=== PATIENT | male | born 1945 | race Caucasian/White ===

== ENCOUNTER → 2017-02-24 | Outpatient (CLI) | payer MEDICARE, OTHER ==
[~2017-02-24] MED LIST: ABAC300; ACETAMINOPHEN500 MG PO; ALBU2.5V5 NEB; ALBU90OI6 INH; ALBU90OI61 INH; ALLO100 PO; ALUM-MAG HYDRO360 ML PO; AMLO10 PO; AMLO5 PO; AMOCLA500 PO; ASPI81CH PO; ASPI81EC PO; ATEN50; ATOR80 PO; AURYXIA PO; Allergy Relief10 M1 PO; Aranesp60 MCG/11 INJ; Aspir-Low81 MG PO; BIOTIN1000 MCG PO; BIOTIN10000 MC1 PO; BISA10S PR; BISA5EC PO; BUME2 PO; CALCA500CH PO; CEPH500 PO; CHOL10002; CHOL10002 PO; CINA30; CINA30 PO; CITA20 PO; CLARITIN10 MG PO; CLEM1.34; CLON.1 PO; CLON.2 PO; CLON.3 PO; CLON.3TP TOP; CLON.5 PO; CLOP75 PO; COMBIVENT RESPIM4 GM IH; COMBIVENT RESPIM4 GM INH; Calcium Carbon500 M1 PO; Cilostazol50 MG PO; Clotrimazole AF30 GM TOP; Colace100 MG PO; Cyclobenzaprine5 MG PO; DARB200I SC; DOCU100 PO; DOXERCALCIFEROL SC; ERGO400 PO; FERRIC CITRATE210 MG PO; FEXO180 PO; FISH OIL 500 M1 EAC1 PO; FISH1000 PO; FURO20 PO; FURO80 PO; Flomax0.4 MG PO; GABA300 PO; GABA400 PO; GABA600 PO; GEMF600 PO; GLIP5 PO; HYDACE10B PO; HYDACE5 PO; HYDCHL25 PO; HYDRA25 PO; INSR10I SC; INSUASPI; INSUASPI PO; INSUASPI SC; INSULANI SC; INSULANPEN; INSULANPEN SC; ISOMON20 PO; LAVAP17G PO; LEVFLO250 PO; LEVFLO500 PO; LEVO750 PO; LINZESS145 MCG PO; LOSA25 PO; LOSA50 PO; MERIBIN5 MG PO; METO100ER PO; METO25ER PO; METO5 PO; METO50ER PO; METOLAZONE; MULVITMIND PO; NEBI10 PO; NEPHROCAP PO; NYST100000 PO; Nephro-Vite RX1 EA PO; Norco 10-325 T1 EACH PO; Novolog Fl100 UNIT/1; Novolog Fl100 UNIT/1 SC; Novolog100 UNIT/2 SC; OMEP20ER PO; Omeprazole20 M1; Omeprazole20 M1 PO; POLY17UD PO; POTCHL10ER PO; POTCHL20ER PO; PRED1 PO; PRED10 PO; PRED20 PO; PRED5 PO; PREG75 PO; PSYL5.85P PO; Percocet 10-321 EACH PO; Percocet 5-3251 EACH PO; Prednisone50 MG PO; RENAL VITAMIN0.8 MG PO; ROPI1 PO; Rena-Vite Tabl0.8 MG PO; Renvela800 MG PO; SIMV10 PO; SIMV40 PO; SIMV80 PO; SULTRIDS PO; TAMS.4ER PO; TRAM50 PO; TRIPHROCAPS SOFT1 MG PO; Tamiflu30 MG PO; VANC125 IV; VITAMIN D32000 UNIT PO; Vancomycin1 GM/2501; [UNRECOGNIZED DRUG - OTHER] PO; [UNRECOGNIZED DRUG - OTHER] PO
[2017-02-24 13:34] LABS: BASOPHILS ABSOLUTE AUTO 0.01 K/mm3 (0.00-0.23); BASOPHILS PERCENT AUTO 0 % (0-2); EOSINOPHILS ABSOLUTE AUTO 0.06 K/mm3 (0.00-0.68); EOSINOPHILS PERCENT AUTO 1 % (0-6); Hemoglobin 10.9 g/dL (13.5-17.5); IMMATURE GRAN ABSOLUTE AUTO 0.02 K/mm3 (0.00-0.10); IMMATURE GRAN PERCENT AUTO 0 % (0-1); LYMPHOCYTES ABSOLUTE AUTO 0.92 K/mm3 (0.84-5.20); LYMPHOCYTES PERCENT AUTO 15 % (21-46); MONOCYTES ABSOLUTE AUTO 0.39 K/mm3 (0.16-1.47); MONOCYTES PERCENT AUTO 6 % (4-13); Mean Corpuscular HGB 29.5 pg (26.0-34.0); Mean Corpuscular HGB Conc 31.1 g/dL (31.5-36.5); Mean Corpuscular Volume 95 fL (80-100); Mean Platelet Volume 10.6 fL (9.1-12.4); NEUTROPHILS ABSOLUTE AUTO 4.68 K/mm3 (1.96-9.15); NEUTROPHILS PERCENT AUTO 77 % (41-73); Platelet Count 199 K/mm3 (150-400); RDW Coefficient Variation 15.4 % (11.7-14.2); RDW Standard Deviation 53.5 fL (35.1-46.3); White Blood Cell Count 6.08 K/mm3 (4.00-11.30)
== END | disposition home or self-care (01) ==
LOC: LAB DAV 12:45
PROVIDERS: Internal Medicine Nephrology
DX: N18.6 End stage renal disease (principal); D63.1 Anemia in chronic kidney disease
CPT/HCPCS: 84550; 85025

== ENCOUNTER → 2017-03-10 | Outpatient (CLI) | payer MEDICARE, OTHER | END | disposition home or self-care (01) | LOC: LAB DAV 12:29 | DX: L95.9 Vasculitis limited to the skin, unspecified (principal) | CPT/HCPCS: 85651; 86140 ==

== ENCOUNTER → 2017-06-26 | Outpatient (CLI) | payer MEDICARE, OTHER ==
[~2017-06-26] MED LIST changes: -ACETAMINOPHEN500 MG PO; -ALBU2.5V5 NEB; -ATEN50; -AURYXIA PO; -Aranesp60 MCG/11 INJ; -BIOTIN1000 MCG PO; -Calcium Carbon500 M1 PO; -FERRIC CITRATE210 MG PO; -GABA400 PO; -HYDRA25 PO; -ISOMON20 PO; -LEVO750 PO; -Novolog100 UNIT/2 SC; -PREG75 PO; -RENAL VITAMIN0.8 MG PO
[2017-06-26 13:59] LABS: Hematocrit 27.1 % (37.0-53.0); Hemoglobin 8.7 g/dL (13.5-17.5); Mean Corpuscular HGB Conc 32.1 g/dL (31.5-36.5); Mean Corpuscular Volume 96 fL (80-100); Mean Platelet Volume 10.8 fL (9.1-12.4); Platelet Count 185 K/mm3 (150-400); RDW Coefficient Variation 13.7 % (11.7-14.2); RDW Standard Deviation 48.9 fL (35.1-46.3); Red Blood Cell Count 2.81 M/mm3 (4.30-5.90); White Blood Cell Count 10.98 K/mm3 (4.00-11.30)
[2017-06-26 14:25] LABS: C-REACTIVE PROTEIN, EXT RANGE 0.684 mg/dL (0.000-0.300); Uric Acid, Blood 5.9 mg/dL (3.5-7.2); Very Low Density Lipoprot Chol 52 mg/dL (6-32)
[2017-06-26 14:51] LABS: Alanine Aminotransfer (ALT/SGP 22 U/L (12-78); Albumin, Blood 3.1 g/dL (3.4-5.0); Albumin/Globulin Ratio 0.8 (0.8-1.8); Alk Phos 84 U/L (50-136); Anion Gap 11 mmol/L (6-16); Aspartate Aminotrans (AST/SGOT 12 U/L (12-37); Bilirubin, Total 0.4 mg/dL (0.1-1.0); Blood Urea Nitrogen 58 mg/dL (8-24); CHOL/HDL RATIO 3.1; CO2, Blood 27 mmol/L (21-32); Calcium, Blood 8.9 mg/dL (8.5-10.1); Chloride, Blood 96 mmol/L (98-108); Cholesterol 144 mg/dL (50-200); Globulin, Blood 3.7 g/dL (2.2-4.0); Glucose, Blood 274 mg/dL (70-99); HDL Cholesterol 46 mg/dL (>39); Low Density Lipoprotein Chol 46 mg/dL (0-110); Potassium, Blood 5.1 mmol/L (3.5-5.5); Sodium, Blood 134 mmol/L (136-145); Thyroid Stimulating Hormone 0.781 uIU/mL (0.360-4.800); Total Protein, Blood 6.8 g/dL (6.4-8.2); Triglycerides 261 mg/dL (30-160)
[2017-06-26 15:10] LABS: Creatinine, Blood 8.27 mg/dL (0.60-1.20); Glomerular Filtration Rate 7 (60-)
== END | disposition home or self-care (01) ==
LOC: OLS 12:04 → LAB SHORT 12:04
PROVIDERS: Hospitalist
DX: E11.40 Type 2 diabetes mellitus with diabetic neuropathy, unspecified (principal); M31.5 Giant cell arteritis with polymyalgia rheumatica; I10 Essential (primary) hypertension
CPT/HCPCS: 36415; 80053; 80061; 83036; 84443; 84550; 85027; 85651; 86140

== ENCOUNTER 2017-07-11 17:09 | Inpatient (IN) | payer MEDICARE, OTHER ==
[~2017-07-11] VITALS: Ht 172.7 cm; Wt 117.9 kg
[2017-07-11 18:04] LABS: BASOPHILS ABSOLUTE AUTO 0.01 K/mm3 (0.00-0.23); BASOPHILS PERCENT AUTO 0 % (0-2); EOSINOPHILS ABSOLUTE AUTO 0.02 K/mm3 (0.00-0.68); EOSINOPHILS PERCENT AUTO 0 % (0-6); IMMATURE GRAN ABSOLUTE AUTO 0.09 K/mm3 (0.00-0.10); IMMATURE GRAN PERCENT AUTO 1 % (0-1); LYMPHOCYTES ABSOLUTE AUTO 1.15 K/mm3 (0.84-5.20); LYMPHOCYTES PERCENT AUTO 15 % (21-46); MONOCYTES ABSOLUTE AUTO 0.48 K/mm3 (0.16-1.47); MONOCYTES PERCENT AUTO 6 % (4-13); Mean Corpuscular HGB 32.4 pg (26.0-34.0); Mean Corpuscular HGB Conc 33.3 g/dL (31.5-36.5); Mean Corpuscular Volume 97 fL (80-100); Mean Platelet Volume 10.6 fL (9.1-12.4); NEUTROPHILS ABSOLUTE AUTO 6.07 K/mm3 (1.96-9.15); NEUTROPHILS PERCENT AUTO 78 % (41-73); Platelet Count 153 K/mm3 (150-400); RDW Coefficient Variation 13.4 % (11.7-14.2); RDW Standard Deviation 48.1 fL (35.1-46.3); Red Blood Cell Count 2.78 M/mm3 (4.30-5.90); White Blood Cell Count 7.82 K/mm3 (4.00-11.30)
[2017-07-11 18:18] LABS: Albumin, Blood 3.4 g/dL (3.4-5.0); Albumin/Globulin Ratio 0.9 (0.8-1.8); Bilirubin, Total 0.3 mg/dL (0.1-1.0); Bun/Creatinine Ratio 6.5 (12.0-20.0); Calcium, Blood 9.5 mg/dL (8.5-10.1); Creatinine, Blood 5.37 mg/dL (0.60-1.20); Globulin, Blood 3.7 g/dL (2.2-4.0); Potassium, Blood 4.2 mmol/L (3.5-5.5); Total Protein, Blood 7.1 g/dL (6.4-8.2)
[2017-07-11 18:32] LABS: Troponin I 0.019 ng/mL (0.000-0.040)
[2017-07-11] MEDS ORDERED: AURYXIA PO (21:26)
[2017-07-11] MEDS ORDERED: ATEN50 (21:26)
[2017-07-11] MEDS ORDERED: HYDRA25 PO (22:11)
[2017-07-12 04:39] LABS: BASOPHILS ABSOLUTE AUTO 0.01 K/mm3 (0.00-0.23); BASOPHILS PERCENT AUTO 0 % (0-2); EOSINOPHILS ABSOLUTE AUTO 0.03 K/mm3 (0.00-0.68); EOSINOPHILS PERCENT AUTO 1 % (0-6); Hematocrit 25.8 % (37.0-53.0); Hemoglobin 8.3 g/dL (13.5-17.5); IMMATURE GRAN PERCENT AUTO 2 % (0-1); LYMPHOCYTES ABSOLUTE AUTO 0.83 K/mm3 (0.84-5.20); LYMPHOCYTES PERCENT AUTO 13 % (21-46); MONOCYTES ABSOLUTE AUTO 0.32 K/mm3 (0.16-1.47); MONOCYTES PERCENT AUTO 5 % (4-13); Mean Corpuscular HGB 31.4 pg (26.0-34.0); Mean Corpuscular HGB Conc 32.2 g/dL (31.5-36.5); Mean Corpuscular Volume 98 fL (80-100); Mean Platelet Volume 10.7 fL (9.1-12.4); NEUTROPHILS ABSOLUTE AUTO 4.94 K/mm3 (1.96-9.15); NEUTROPHILS PERCENT AUTO 79 % (41-73); Platelet Count 141 K/mm3 (150-400); RDW Coefficient Variation 13.5 % (11.7-14.2); RDW Standard Deviation 48.6 fL (35.1-46.3); Red Blood Cell Count 2.64 M/mm3 (4.30-5.90); White Blood Cell Count 6.23 K/mm3 (4.00-11.30)
[2017-07-12 05:05] LABS: Magnesium, Blood 2.3 mg/dL (1.6-2.4)
[2017-07-12 05:10] LABS: Alanine Aminotransfer (ALT/SGP 25 U/L (12-78); Albumin, Blood 2.9 g/dL (3.4-5.0); Albumin/Globulin Ratio 0.8 (0.8-1.8); Alk Phos 89 U/L (50-136); Anion Gap 9 mmol/L (6-16); Aspartate Aminotrans (AST/SGOT 17 U/L (12-37); Bilirubin, Total 0.3 mg/dL (0.1-1.0); Blood Urea Nitrogen 43 mg/dL (8-24); Bun/Creatinine Ratio 7.1 (12.0-20.0); CO2, Blood 31 mmol/L (21-32); Calcium, Blood 9.2 mg/dL (8.5-10.1); Chloride, Blood 98 mmol/L (98-108); Creatinine, Blood 6.06 mg/dL (0.60-1.20); Globulin, Blood 3.6 g/dL (2.2-4.0); Glomerular Filtration Rate 10 (60-); Glucose, Blood 168 mg/dL (70-99); Phosphorus, Blood 5.9 mg/dL (2.5-4.9); Potassium, Blood 4.6 mmol/L (3.5-5.5); Sodium, Blood 138 mmol/L (136-145); Total Protein, Blood 6.5 g/dL (6.4-8.2)
[2017-07-12 06:45] LABS: Influenza A Negative (NEGATIVE); Influenza B Negative (NEGATIVE)
[2017-07-13 05:25] LABS: Hematocrit 29.2 % (37.0-53.0); Hemoglobin 9.5 g/dL (13.5-17.5)
[2017-07-13 05:47] LABS: Anion Gap 9 mmol/L (6-16); Blood Urea Nitrogen 45 mg/dL (8-24); Bun/Creatinine Ratio 7.6 (12.0-20.0); CO2, Blood 30 mmol/L (21-32); Calcium, Blood 8.8 mg/dL (8.5-10.1); Chloride, Blood 96 mmol/L (98-108); Creatinine, Blood 5.94 mg/dL (0.60-1.20); Glomerular Filtration Rate 10 (60-); Glucose, Blood 276 mg/dL (70-99); Magnesium, Blood 2.3 mg/dL (1.6-2.4); Phosphorus, Blood 5.2 mg/dL (2.5-4.9); Potassium, Blood 4.6 mmol/L (3.5-5.5); Sodium, Blood 135 mmol/L (136-145)
[2017-07-13 06:22] LABS: Percent Saturation 35.2 % (20.0-50.0)
[2017-07-13 08:17] LABS: Source, Urine Clean Catch
[2017-07-13 08:41] LABS: Bilirubin, Urine Neg (Neg); Blood, Urine 1+ (Neg); Glucose Qualitative, Urine 4+ (Neg); Ketones, Urine Neg (Neg); Leukocyte Esterase, Urine Neg (Neg); Nitrite, Urine Neg (Neg); Protein, Urine 3+ (Neg); Urobilinogen, Urine NORM (Normal)
[2017-07-13 09:05] LABS: Appearance, Urine Clear (Clear); Color, Urine Yellow (P-Yellow)
[2017-07-13 09:08] LABS: Bacteria Few /hpf; Red Blood Cells, Urine 0-2 /hpf (0-2); Squamous Epithelial Cells Few /hpf (Few); White Blood Cells, Urine 0-2 /hpf (0-5)
[2017-07-14 04:17] LABS: BASOPHILS ABSOLUTE AUTO 0.02 K/mm3 (0.00-0.23); BASOPHILS PERCENT AUTO 0 % (0-2); EOSINOPHILS ABSOLUTE AUTO 0.07 K/mm3 (0.00-0.68); EOSINOPHILS PERCENT AUTO 1 % (0-6); Hematocrit 28.5 % (37.0-53.0); Hemoglobin 9.4 g/dL (13.5-17.5); IMMATURE GRAN ABSOLUTE AUTO 0.15 K/mm3 (0.00-0.10); IMMATURE GRAN PERCENT AUTO 2 % (0-1); LYMPHOCYTES ABSOLUTE AUTO 1.43 K/mm3 (0.84-5.20); LYMPHOCYTES PERCENT AUTO 18 % (21-46); MONOCYTES ABSOLUTE AUTO 0.66 K/mm3 (0.16-1.47); MONOCYTES PERCENT AUTO 8 % (4-13); Mean Corpuscular HGB 31.3 pg (26.0-34.0); Mean Platelet Volume 10.6 fL (9.1-12.4); NEUTROPHILS ABSOLUTE AUTO 5.59 K/mm3 (1.96-9.15); NEUTROPHILS PERCENT AUTO 71 % (41-73); Platelet Count 174 K/mm3 (150-400); RDW Coefficient Variation 14.4 % (11.7-14.2); RDW Standard Deviation 50.2 fL (35.1-46.3); White Blood Cell Count 7.92 K/mm3 (4.00-11.30)
[2017-07-14 04:19] LABS: Mean Corpuscular Volume 95 fL (80-100)
[2017-07-14 04:40] LABS: Anion Gap 11 mmol/L (6-16); Blood Urea Nitrogen 42 mg/dL (8-24); Bun/Creatinine Ratio 7.2 (12.0-20.0); CO2, Blood 29 mmol/L (21-32); Calcium, Blood 8.7 mg/dL (8.5-10.1); Chloride, Blood 93 mmol/L (98-108); Creatinine, Blood 5.84 mg/dL (0.60-1.20); Glomerular Filtration Rate 10 (60-); Glucose, Blood 160 mg/dL (70-99); Magnesium, Blood 2.3 mg/dL (1.6-2.4); Phosphorus, Blood 5.5 mg/dL (2.5-4.9); Sodium, Blood 133 mmol/L (136-145)
== END 2017-07-14 16:10 | disposition home or self-care (01) | DRG 286 ==
LOC: ER 17:09 → MEDS 20:22 → PCU 21:50 → MEDS 07-12 01:33 → PCU 07-13 13:03
PROVIDERS: Internal Medicine; Internal Medicine Interventional Cardiology; Internal Medicine Nephrology; Physician Assistant
PROC: 4A023N7 Measurement of Cardiac Sampling and Pressure, Left Heart, Percutaneous Approach (ICD-10-PCS; principal; 2017-07-13)
PROC: B211YZZ Fluoroscopy of Multiple Coronary Arteries using Other Contrast (ICD-10-PCS; 2017-07-13)
DX: I13.2 Hypertensive heart and chronic kidney disease with heart failure and with stage 5 chronic kidney disease, or end stage renal disease (principal); I50.33 Acute on chronic diastolic (congestive) heart failure; N18.6 End stage renal disease; E27.40 Unspecified adrenocortical insufficiency; E24.9 Cushing's syndrome, unspecified; Z99.2 Dependence on renal dialysis; I25.5 Ischemic cardiomyopathy; E66.01 Morbid (severe) obesity due to excess calories; M31.5 Giant cell arteritis with polymyalgia rheumatica; E11.22 Type 2 diabetes mellitus with diabetic chronic kidney disease; Z79.4 Long term (current) use of insulin; E78.5 Hyperlipidemia, unspecified; M48.00 Spinal stenosis, site unspecified; K21.9 Gastro-esophageal reflux disease without esophagitis; J44.9 Chronic obstructive pulmonary disease, unspecified; N40.0 Benign prostatic hyperplasia without lower urinary tract symptoms
CPT/HCPCS: 36415; 36430; 71046; 80048; 80053; 80069; 81001; 82728; 82947; 83540; 83550; 83735; 83880; 84100; 84145; 84484; 85014; 85018; 85025; 85651; 86850; 86900; 86901; 86923; 87804; 92978; 93005; 93010; 93458; 94762; 99152; 99153; 99285; C1725; C1753; C1769; C1874; C1887; C1894; C9600; J0360; J0881; J1644; J1650; J1720; J1815; J1956; J2250; J3010; J7030; P9016; Q9967

== ENCOUNTER → 2018-04-11 | Outpatient (CLI) | payer MEDICARE, OTHER ==
[~2018-04-11] MED LIST changes: +ACETAMINOPHEN500 MG PO; +ALBU2.5V5 NEB; +ATEN50; +AURYXIA PO; +Amox Tr-K Clv1 EAC2 PO; +Aranesp60 MCG/11 INJ; +BIOTIN5000 MC1 SL; +Calcium Carbon500 M1 PO; +FERRIC CITRATE210 MG PO; +FISH OIL 500 M1 EAC3 PO; +GABA400 PO; +HYDRA25 PO; +ISOMON20 PO; +LEVO750 PO; +Novolog100 UNIT/2 SC; +PREG75 PO; +RENAL VITAMIN0.8 MG PO
== END | disposition home or self-care (01) ==
LOC: LAB SHORT 14:02 → LAB 14:02
DX: I77.6 Arteritis, unspecified (principal)
CPT/HCPCS: 85651; 86140

== ENCOUNTER 2018-04-16 13:05 | Inpatient (IN) | payer MEDICARE, OTHER ==
[~2018-04-16] VITALS: Ht 172.7 cm; Wt 115.2 kg
[~2018-04-16 13:05] MED LIST changes: -Amox Tr-K Clv1 EAC2 PO; -FISH OIL 500 M1 EAC3 PO
[2018-04-16 13:52] LABS: BASOPHILS ABSOLUTE AUTO 0.01 K/mm3 (0.00-0.23); BASOPHILS PERCENT AUTO 0 % (0-2); EOSINOPHILS PERCENT AUTO 0 % (0-6); Hematocrit 33.9 % (37.0-53.0); Hemoglobin 10.3 g/dL (13.5-17.5); IMMATURE GRAN ABSOLUTE AUTO 0.36 K/mm3 (0.00-0.10); IMMATURE GRAN PERCENT AUTO 4 % (0-1); LYMPHOCYTES ABSOLUTE AUTO 0.51 K/mm3 (0.84-5.20); LYMPHOCYTES PERCENT AUTO 5 % (21-46); MONOCYTES ABSOLUTE AUTO 0.26 K/mm3 (0.16-1.47); MONOCYTES PERCENT AUTO 3 % (4-13); Mean Corpuscular HGB 29.9 pg (26.0-34.0); Mean Corpuscular HGB Conc 30.4 g/dL (31.5-36.5); Mean Platelet Volume 10.3 fL (9.1-12.4); NEUTROPHILS ABSOLUTE AUTO 8.66 K/mm3 (1.96-9.15); NEUTROPHILS PERCENT AUTO 88 % (41-73); Platelet Count 228 K/mm3 (150-400); RDW Coefficient Variation 15.8 % (11.7-14.2); RDW Standard Deviation 56.7 fL (35.1-46.3); Red Blood Cell Count 3.44 M/mm3 (4.30-5.90)
[2018-04-16 13:54] LABS: Mean Corpuscular Volume 99 fL (80-100)
[2018-04-16] MEDS ORDERED: HYDRA25 PO ×2 (14:12)
[2018-04-16 14:18] LABS: Troponin I 0.034 ng/mL (0.000-0.040)
[2018-04-16] MEDS ORDERED: Amox Tr-K Clv1 EAC2 PO ×2 (14:22)
[2018-04-16 14:35] LABS: Albumin, Blood 3.1 g/dL (3.4-5.0); Albumin/Globulin Ratio 0.7 (0.8-1.8); Bilirubin, Total 0.4 mg/dL (0.1-1.0); Bun/Creatinine Ratio 10.2 (12.0-20.0); Calcium, Blood 7.9 mg/dL (8.5-10.1); Creatinine, Blood 9.06 mg/dL (0.60-1.20); Globulin, Blood 4.2 g/dL (2.2-4.0); Potassium, Blood 5.7 mmol/L (3.5-5.5); Total Protein, Blood 7.3 g/dL (6.4-8.2)
[2018-04-17 06:12] LABS: Hematocrit 31.4 % (37.0-53.0); Mean Corpuscular HGB 30.7 pg (26.0-34.0); Mean Corpuscular HGB Conc 31.8 g/dL (31.5-36.5); Mean Platelet Volume 10.3 fL (9.1-12.4); Platelet Count 204 K/mm3 (150-400); RDW Coefficient Variation 15.9 % (11.7-14.2); RDW Standard Deviation 56.1 fL (35.1-46.3); Red Blood Cell Count 3.26 M/mm3 (4.30-5.90); White Blood Cell Count 11.45 K/mm3 (4.00-11.30)
[2018-04-17 06:13] LABS: Mean Corpuscular Volume 96 fL (80-100)
[2018-04-17 06:20] LABS: PCO2 Arterial 45.5 mmHg (35-45); PO2 Arterial 75.3 mmHg (80-100); pH Blood Arterial 7.45 (7.35-7.45)
[2018-04-17 06:36] LABS: Magnesium, Blood 2.6 mg/dL (1.6-2.4)
[2018-04-17 06:37] LABS: Alanine Aminotransfer (ALT/SGP 18 U/L (12-78); Albumin, Blood 2.8 g/dL (3.4-5.0); Albumin/Globulin Ratio 0.7 (0.8-1.8); Alk Phos 74 U/L (50-136); Anion Gap 11 mmol/L (6-16); Aspartate Aminotrans (AST/SGOT 9 U/L (12-37); Bilirubin, Total 0.3 mg/dL (0.1-1.0); Blood Urea Nitrogen 52 mg/dL (8-24); CO2, Blood 30 mmol/L (21-32); Calcium, Blood 8.3 mg/dL (8.5-10.1); Chloride, Blood 95 mmol/L (98-108); Creatinine, Blood 5.76 mg/dL (0.60-1.20); Glomerular Filtration Rate 10 (60-); Glucose, Blood 297 mg/dL (70-99); Phosphorus, Blood 6.1 mg/dL (2.5-4.9); Potassium, Blood 4.4 mmol/L (3.5-5.5); Sodium, Blood 136 mmol/L (136-145); Total Protein, Blood 6.8 g/dL (6.4-8.2)
[2018-04-17 16:27] LABS: Vancomycin, Random 17.3 ug/mL
--- NOTE | 2018-04-17 19:02 | NUR ---
SHIFT SUMMARY PT EATING AND DRINKING. PT VOIDED SMALL AMT. PT BEEN ASSISTED WITH ADL'S PRN. PT HAD SKIN TEAR TO R ARM WHICH WAS CLEANED UP AND COVERED PER PT REQ. PT BEEN MED ORDERED. DISCUSSED CBG MEDICATION WITH DR ALDRIDGE. PT HEEL PROTECTORS IN PLACE.
[2018-04-18 04:36] LABS: Hematocrit 32.4 % (37.0-53.0)
[2018-04-18 05:03] LABS: Albumin, Blood 2.7 g/dL (3.4-5.0); Anion Gap 13 mmol/L (6-16); Blood Urea Nitrogen 79 mg/dL (8-24); Bun/Creatinine Ratio 10.5 (12.0-20.0); CO2, Blood 26 mmol/L (21-32); Calcium, Blood 8.2 mg/dL (8.5-10.1); Chloride, Blood 96 mmol/L (98-108); Creatinine, Blood 7.53 mg/dL (0.60-1.20); Glomerular Filtration Rate 8 (60-); Glucose, Blood 173 mg/dL (70-99); Magnesium, Blood 2.8 mg/dL (1.6-2.4); Potassium, Blood 4.8 mmol/L (3.5-5.5); Sodium, Blood 135 mmol/L (136-145)
--- NOTE | 2018-04-18 06:23 | NUR ---
NO CHANGES THIS SHIFT. PAIN WELL MANAGED WITH PRN PAIN MEDS. C-PAP WORN FOR COMFORT AND REST WITH O2 AT 2L BLEED IN. DENIES PAIN, DISCOMFORT, OR FURTHER NEEDS AT THIS TIME. SAFETY MEASURES IN PLACE. WILL CONTINUE TO MONITOR.
[2018-04-18 12:03] LABS: Vancomycin, Random 10.9 ug/mL
--- NOTE | 2018-04-18 13:39 | NUR ---
PT MEDICATED WITH INUSULIN AND IRON PER EMAR ORDERS. DIALYSIS COMPLETE AT 1315, 3.4L TAKEN OFF.
[2018-04-18] MEDS ORDERED: FERRIC CITRATE210 MG PO ×2 (15:27)
--- NOTE | 2018-04-18 16:10 | NUR ---
DISCHARGE DR. FERRARO NOTIFIED THAT PT HAD LOW GRADE FEVER OF 99.7 AT TIME OF DISCHARGE; NO NEW ORDERS AT THIS TIME. PT EDUCATED TO NOTIFY PRIMARY CARE IF FEVER IS GREATER THAN 100 DEGREES. PT PROVIDED WITH WRITTEN AND VERBAL DISCHARGE INSTRUCTIONS. EDUCATED TO FOLLOW UP WITH PRIMARY CARE WITHIN 1 WEEK AND TO CONTINUE DIALYSIS NORMAL. PT AND SPOUSE REPORTED UNDERSTANDING DISCHARGE INSTRUCTIONS AFTER QUESTIONS WERE ANSWERED. VSS. PT ESCORTED OUT IN W/C BY FRANCES RAE.
[2018-04-21] MEDS ORDERED: INSULANPEN SC (16:03)
== END 2018-04-18 16:12 | disposition home or self-care (01) | DRG 640 ==
LOC: ER 13:05 → ERHOLD 15:25 → ER 15:25 → MEDS 15:25 → SURS 04-17 10:30
PROVIDERS: Emergency Medicine; Family Medicine; Internal Medicine Nephrology; Pharmacist; ADMIT Internal Medicine
PROC: 5A1D70Z Performance of Urinary Filtration, Intermittent, Less than 6 Hours Per Day (ICD-10-PCS; principal; 2018-04-16)
PROC: 5A1D70Z Performance of Urinary Filtration, Intermittent, Less than 6 Hours Per Day (ICD-10-PCS; 2018-04-18)
DX: E87.70 Fluid overload, unspecified (principal); J96.21 Acute and chronic respiratory failure with hypoxia; N18.6 End stage renal disease; N17.9 Acute kidney failure, unspecified; I12.0 Hypertensive chronic kidney disease with stage 5 chronic kidney disease or end stage renal disease; J81.1 Chronic pulmonary edema; I13.2 Hypertensive heart and chronic kidney disease with heart failure and with stage 5 chronic kidney disease, or end stage renal disease; N25.81 Secondary hyperparathyroidism of renal origin; D63.1 Anemia in chronic kidney disease; E87.5 Hyperkalemia; Z66 Do not resuscitate; D89.9 Disorder involving the immune mechanism, unspecified; E11.22 Type 2 diabetes mellitus with diabetic chronic kidney disease; Z99.2 Dependence on renal dialysis; Z79.4 Long term (current) use of insulin; G47.33 Obstructive sleep apnea (adult) (pediatric); I25.10 Atherosclerotic heart disease of native coronary artery without angina pectoris; I73.9 Peripheral vascular disease, unspecified; G89.29 Other chronic pain; J44.9 Chronic obstructive pulmonary disease, unspecified; K21.9 Gastro-esophageal reflux disease without esophagitis; M31.5 Giant cell arteritis with polymyalgia rheumatica; M10.9 Gout, unspecified; I50.9 Heart failure, unspecified; E78.5 Hyperlipidemia, unspecified; Z99.81 Dependence on supplemental oxygen
CPT/HCPCS: 36415; 36600; 71045; 80053; 80069; 80202; 82803; 82947; 83735; 83880; 84100; 84484; 85014; 85018; 85025; 85027; 87040; 93005; 93010; 94660; 94762; 96365; 96367; 96375; 96376; 99285-25; J1815; J2543; J2930; J3370; J7050

== ENCOUNTER 2018-04-21 10:38 | Inpatient (IN) | payer MEDICARE, OTHER ==
[~2018-04-21] VITALS: Ht 172.7 cm; Wt 110.4 kg
[~2018-04-21 10:38] MED LIST changes: +ACETAMINOPHEN325 MG PO; -ACETAMINOPHEN500 MG PO; +Amox Tr-K Clv1 EAC2 PO; -BIOTIN5000 MC1 SL
[2018-04-21 13:34] LABS: BASOPHILS ABSOLUTE AUTO 0.04 K/mm3 (0.00-0.23); BASOPHILS PERCENT AUTO 0 % (0-2); EOSINOPHILS ABSOLUTE AUTO 0.01 K/mm3 (0.00-0.68); EOSINOPHILS PERCENT AUTO 0 % (0-6); Hematocrit 35.4 % (37.0-53.0); Hemoglobin 10.9 g/dL (13.5-17.5); IMMATURE GRAN ABSOLUTE AUTO 0.59 K/mm3 (0.00-0.10); IMMATURE GRAN PERCENT AUTO 6 % (0-1); LYMPHOCYTES ABSOLUTE AUTO 0.61 K/mm3 (0.84-5.20); LYMPHOCYTES PERCENT AUTO 6 % (21-46); MONOCYTES ABSOLUTE AUTO 0.33 K/mm3 (0.16-1.47); MONOCYTES PERCENT AUTO 3 % (4-13); Mean Corpuscular HGB 30.3 pg (26.0-34.0); Mean Corpuscular HGB Conc 30.8 g/dL (31.5-36.5); Mean Corpuscular Volume 98 fL (80-100); Mean Platelet Volume 10.9 fL (9.1-12.4); NEUTROPHILS ABSOLUTE AUTO 8.35 K/mm3 (1.96-9.15); NEUTROPHILS PERCENT AUTO 84 % (41-73); Platelet Count 197 K/mm3 (150-400); RDW Coefficient Variation 15.4 % (11.7-14.2); RDW Standard Deviation 55.7 fL (35.1-46.3); White Blood Cell Count 9.93 K/mm3 (4.00-11.30)
[2018-04-21 13:39] LABS: Albumin/Globulin Ratio 0.8 (0.8-1.8); Bilirubin, Total 0.4 mg/dL (0.1-1.0); Bun/Creatinine Ratio 9.3 (12.0-20.0); Calcium, Blood 7.9 mg/dL (8.5-10.1); Creatinine, Blood 5.69 mg/dL (0.60-1.20); Potassium, Blood 5.6 mmol/L (3.5-5.5)
[2018-04-21] MEDS ORDERED: FISH OIL 500 M1 EAC3 PO (16:05)
[2018-04-21] MEDS ORDERED: CLON.2 PO (16:06)
[2018-04-21] MEDS ORDERED: AURYXIA PO (16:07)
--- NOTE | 2018-04-21 19:06 | NUR ---
PATIENT ARRIVED TO UNIT AT 1900. SENT UP WITH MEDICATIONS. ON 2L O2 NC. NO ACUTE DISTRESS. RN TO GIVE REPORT TO ALUMINUM BOAT ASSEMBLY SUPERVISOR RN.
--- NOTE | 2018-04-22 00:59 | NUR ---
DR. DURAN CALLED AND NOTIFIED OF POTASSIUM RESULTS.
[2018-04-22 05:30] LABS: BASOPHILS ABSOLUTE AUTO 0.04 K/mm3 (0.00-0.23); BASOPHILS PERCENT AUTO 0 % (0-2); EOSINOPHILS ABSOLUTE AUTO 0.01 K/mm3 (0.00-0.68); EOSINOPHILS PERCENT AUTO 0 % (0-6); Hematocrit 34.5 % (37.0-53.0); Hemoglobin 10.4 g/dL (13.5-17.5); IMMATURE GRAN ABSOLUTE AUTO 0.49 K/mm3 (0.00-0.10); IMMATURE GRAN PERCENT AUTO 5 % (0-1); LYMPHOCYTES ABSOLUTE AUTO 0.38 K/mm3 (0.84-5.20); LYMPHOCYTES PERCENT AUTO 4 % (21-46); MONOCYTES ABSOLUTE AUTO 0.28 K/mm3 (0.16-1.47); MONOCYTES PERCENT AUTO 3 % (4-13); Mean Corpuscular HGB 29.9 pg (26.0-34.0); Mean Corpuscular HGB Conc 30.1 g/dL (31.5-36.5); Mean Corpuscular Volume 99 fL (80-100); Mean Platelet Volume 10.8 fL (9.1-12.4); NEUTROPHILS PERCENT AUTO 88 % (41-73); Platelet Count 188 K/mm3 (150-400); RDW Coefficient Variation 15.3 % (11.7-14.2); RDW Standard Deviation 55.8 fL (35.1-46.3); Red Blood Cell Count 3.48 M/mm3 (4.30-5.90)
--- NOTE | 2018-04-22 05:42 | NUR ---
SHIFT SUMMARY PT CAME TO THE ER YESTERDAY WITH VARIOUS COMPLAINTS, AMONGST THEM BEING BACK, AND RIGHT HIP PAIN. WELL PAIN IN HIS GROIN AND RECTUM. PT STATES THAT HE MADE AWARE OF PAIN IN HIS RECTUM BUT THAT IT WAS NEVER PHYSICALLY ASSESSED OR ADDRESSED BY THE PHYSICAN. HE STATES THAT THE DILAUDID MASKED THE PAIN FOR MOST OF THE DAY. BUT THAT IT WAS THE WORST IT HAD EVER BEEN AROUND 0300. I ASSESSED PT RECTUM AND FOUND NO ABNORMALTIES ASIDE FROM A SCANT AMOUNT OF BRIGHT RED BLOOD WHEN I WIPED WITH A RAG. PT STATES HIS LAST BM WAS AT HOME, AND THAT HE DOES IN FACT HAVE PROBLEMS WITH CONSTIPATION AT HOME. AND THAT HE HAD NOT NOTICED ANY BLOOD IN HIS STOOL. I EXPRESSED TO PT THAT IT COULD POSSIBLY BE HEMMROIDS OR FISSURES. BUT THAT IT WOULD NEED TO BE FURTHER ASSESSED BY HIS PHYSICIAN SHAI ZHANG TOMORROW. I MEDICATED PT WITH DILAUDID WHICH PROVIDED RELIEF. IT IS NOT NOTED IN PHYSICAN NOTES THAT PT HAD COMPLAINED OF RECTAL PAIN. I CALLED KAZ AND NOTIFED HIM OF PT COMPLAINT. HE STATES "OK", AND THERE WERE NO NEW ORDERS GIVEN. PT HAS NOT REALLY COMPLAINED OF BACK OR HIP PAIN THIS SHIFT. RECTAL PAIN HAS BEEN HIS CHEIF COMPLAINT. PVD TO LEFT EXT. ELEVATED ON PILLOWS PER ORDERS. PT TAKES HIS LEGS OFF OF PILLOWS MOST OF THE TIME, DESPITE INSTRUCTION. ICE THERAPY TO AFFECTED AREAS, R HIP AND BACK. VITALS STABLE. PT RESTED ON AND OFF T/O THE NIGHT. WILL CONTINUE TO MONITOR AND REPORT TO ONCOMING RN.
[2018-04-22 06:07] LABS: Alanine Aminotransfer (ALT/SGP 20 U/L (12-78); Albumin/Globulin Ratio 0.8 (0.8-1.8); Alk Phos 71 U/L (50-136); Anion Gap 14 mmol/L (6-16); Aspartate Aminotrans (AST/SGOT 8 U/L (12-37); Bilirubin, Total 0.6 mg/dL (0.1-1.0); Blood Urea Nitrogen 68 mg/dL (8-24); Bun/Creatinine Ratio 9.5 (12.0-20.0); CO2, Blood 27 mmol/L (21-32); Calcium, Blood 7.8 mg/dL (8.5-10.1); Chloride, Blood 92 mmol/L (98-108); Creatinine, Blood 7.14 mg/dL (0.60-1.20); Globulin, Blood 3.9 g/dL (2.2-4.0); Glomerular Filtration Rate 8 (60-); Glucose, Blood 239 mg/dL (70-99); Magnesium, Blood 2.5 mg/dL (1.6-2.4); Phosphorus, Blood 6.4 mg/dL (2.5-4.9); Potassium, Blood 5.4 mmol/L (3.5-5.5); Sodium, Blood 133 mmol/L (136-145); Total Protein, Blood 6.9 g/dL (6.4-8.2)
--- NOTE | 2018-04-22 14:06 | NUR ---
DR HEART CALLED NURSE TO DISCUSS CONSULT. HE STATES HE WILL BE IN IN THE MORNING TO ASSESS PATIENT. HE ORDERED TO CONTINUE HEPARIN PER EMAR AND PUT PT NPO AT MIDNIGHT IN CASE HE NEEDS TO DO A PROCEDURE. DR ZHANG AWARE AT [id number]
--- NOTE | 2018-04-22 14:18 | NUR ---
Pt gave student permission to provide care on 04/23/18.
--- NOTE | 2018-04-22 17:29 | NUR ---
SHIFT SUMMARY PT AXO, COOPERATIVE WITH CARE, MEDCIATED FOR PAIN PER EMAR THOUGH HIS PAIN NEVER GOT BELOW A 6. AT 1240 PT WAS EATING LUNCH WITH INCREASED WOB. PT HAD RHONCHI. DR ZHANG NOTIFIED AND NEW ORDERS INITIATED, RORY HO, RT ADMINISTERED TREATMENT, SEE NOTE. PT ON 2L VIA NC SATING AT 94%. BARRIER CREME APPLIED TO PERIANAL AREA AND SACRAL AREA. PT HAD DIALYSIS THIS SHIFT. IV PATENT AND SALINE LOCKED. BED IN LOW POSITION, CALL LIGHT WITHIN REACH.
--- NOTE | 2018-04-23 04:19 | NUR ---
SHIFT SUMMARY PT CONTINUES TO COMPLAIN OF RECTAL PAIN. MEDICATED FOR PAIN PER EMAR WITH AFFECT. PT HAS BEEN INDEPENDENT TO THE BATHROOM USING THE FWW. PT ATTEMPTED TO HAVE A BM THIS SHIFT, BUT WAS UNSUCCESSFUL. PT REQUESTS NOT TO START ANY TYPE OF BOWEL CARE UNTIL AFTER HIS PROCEDURE TODAY. PT LUNGS COURSE T/O. RESP E/U AT REST. CPAP AT NOC. PT AWARE OF CURRENT POC. NPO FOR PROCEDURE TODAY. DR. ARCENIO HEART TO CONSULT ON PT TODAY. NO ACUTE CHANGES IN PT ASSESSMENT. WILL CONTINUE TO MONITOR AND REPORT TO ONCOMING RN.
[2018-04-23 04:58] LABS: Hematocrit 33.8 % (37.0-53.0); Hemoglobin 10.2 g/dL (13.5-17.5)
[2018-04-23 05:21] LABS: Anion Gap 13 mmol/L (6-16); Blood Urea Nitrogen 60 mg/dL (8-24); Bun/Creatinine Ratio 9.6 (12.0-20.0); CO2, Blood 27 mmol/L (21-32); Calcium, Blood 8.4 mg/dL (8.5-10.1); Chloride, Blood 97 mmol/L (98-108); Creatinine, Blood 6.25 mg/dL (0.60-1.20); Glomerular Filtration Rate 9 (60-); Glucose, Blood 166 mg/dL (70-99); Magnesium, Blood 2.6 mg/dL (1.6-2.4); Potassium, Blood 4.9 mmol/L (3.5-5.5); Sodium, Blood 137 mmol/L (136-145)
--- NOTE | 2018-04-23 05:42 | NUR ---
NPO PT NPO FOR PROCEDURE TODAY. OK TO GIVE ORAL PAIN MEDS PER DR. MCCURDY.
--- NOTE | 2018-04-23 12:57 | NUR ---
Rn Ante Partum Note Pt gave consent for Lidia Law to assist with care on 04/24/18
--- NOTE | 2018-04-23 19:00 | NUR ---
SHIFT SUMMARY: NO ACUTE CHANGES TO REPORT THIS SHIFT. PT A&O; CALM AND COOPERATIVE WITH CARE; INDEPENDENT IN ROOM. MEDICATED FOR PAIN PER EMAR. DIALYSIS PT; FISTULAS TO BUE; BPs IN L WRIST. REVASCULARIZATION OF LLE PLANNED FOR 04/24. REPORT GIVEN TO ONCOMING RN.
--- NOTE | 2018-04-24 06:31 | NUR ---
SHIFT SUMMARY A/O, ABLE TO MAKE NEEDS KNOWN. COOPERATIVE WITH CARE. CALLS AND ANSWERS QUESTIONS APPROPRIATELY. C/O PAIN PERIODICALLY T/O SHIFT; REPORTED 7-8/10 PAIN TO BOTTOM; MEDICATED PER EMAR. CPAP ON @ HS. APPEARED TO SLEEP MUCH OF SHIFT. NPO @ MIDNIGHT. BP ELEVATED THIS SHIFT; NEW ORDER FOR HYDRALAZINE, GIVEN. NOT MUCH CHANGE. PATIENT STATED THAT HE DOESN'T BELIEVE THAT THAT MEDICATION IS GOING TO WORK HE BELIEVES THAT HE IS FLUID OVERLOAD WHICH IS MAKING HIS BP RISE. TELE RUNNING NSR @ 67 PER PCU PLATFORM SUPERVISOR. BLOOD SUGAR 314; MEDICATED PER EMAR. WCTM. BED IN LOWEST POSITION. CALL LIGHT AND BELONGINGS WITHIN REACH. REPORT TO ONCOMING RN.
[2018-04-24 09:30] LABS: Hematocrit 32.3 % (37.0-53.0); Hemoglobin 10.1 g/dL (13.5-17.5)
[2018-04-24 09:46] LABS: Albumin, Blood 3.1 g/dL (3.4-5.0); Anion Gap 16 mmol/L (6-16); Blood Urea Nitrogen 81 mg/dL (8-24); Bun/Creatinine Ratio 10.2 (12.0-20.0); CO2, Blood 23 mmol/L (21-32); Calcium, Blood 8.5 mg/dL (8.5-10.1); Chloride, Blood 95 mmol/L (98-108); Creatinine, Blood 7.97 mg/dL (0.60-1.20); Glomerular Filtration Rate 7 (60-); Glucose, Blood 252 mg/dL (70-99); Magnesium, Blood 2.5 mg/dL (1.6-2.4); Potassium, Blood 5.6 mmol/L (3.5-5.5); Sodium, Blood 134 mmol/L (136-145)
--- NOTE | 2018-04-24 12:27 | NUR ---
This student nurse was given permission by RN to access patient's information.
--- NOTE | 2018-04-24 18:19 | NUR ---
ASSUMED CARE APPROX 174 REPORT FROM PERI ECKERT OF WEAVER APPRENTICE. PATIENT HAD REBLEED AFTER CLOSURE DEVICE USED. MANUAL PRESSURE HELD PER REPORT, BUT HEMATOMA IN SCROTUM. FEM STOP IN PLACE NOW AT 122 MMHG. GROIN SITE ON RIGHT. LEFT LEG REPERFUSED BY LASER AND BALLOONS FROM KNEE DOWN. PAT IS A&O. BOTH FEET WARM TO TOUCH,
--- NOTE | 2018-04-24 19:06 | NUR ---
REPORT TO ALVERTO GLORIA RN.
--- NOTE | 2018-04-24 23:50 | NUR ---
RIGHT GROIN SITE LEAKING DECREASED TO SCANT AMOUNT. FEM STOP PRESSURE REDUCED TO 125-135mmHg. PT RESTING WELL.
--- NOTE | 2018-04-24 23:53 | NUR ---
START OF SHIF/DR. FLOWERS: BEDSIDE REPORT FROM TERESA WHITT. PT AWAKE AND HAD JUST FINISHED EVENING MEAL. PT VSS. RIGHT GROIN SITE WITH FEM-STOP IN PLACE WITH SMALL AMOUNT OF DRAINAGE NOTED AND PRESSURE IN FEM-STOP BULP 130'S-140'S mmHg. RIGHT PEDAL AND TIBIAL PULSE BY DOPPLAR; LEFT PEDAL AND TIBIAL PULSE BY DOPPLAR. DR. FLOWERS CAME TO BEDSIDE AND STATED THAT THEY WERE HAVING A HARD TIME GETTING ACCURATE BLOOD PRESSURES ALSO WITH PT ONLY HAVING ONE BP SITE WHICH IS LEFT WRIST. BP TO LEFT WRIST VARIES DRAMATICALLY AND TO ASSESS PT'S OVER-ALL STATUS (SKIN COLOR ETC). DIALYSIS FISTULA TO RIGHT UPPER ARM WITH DRSSING INTACT. PT WITH OLD FISTULA TO LEFT UPPER ARM. WILL CONTINUE TO MONITOR.
--- NOTE | 2018-04-25 00:55 | NUR ---
PT SLEEPING, SATS 96% WITH CPAP. HR 87. NOT ABLE TO OBTAIN ACCURATE BP AT THIS TIME. SKIN PWD. FEM-STOP WITH 95mmHg AND WITH NO DRAINAGE AT THIS TIME.
--- NOTE | 2018-04-25 03:21 | NUR ---
FEM-STOP AT 0mmHg WITH NO DRAINAGE, SWELLING, OR FURTHER BRUISING NOTED. WILL KEEP INTACT FOR 30 MINUTES THEN REASSESS THEN WILL REMOVE.
--- NOTE | 2018-04-25 03:30 | NUR ---
PEDAL AND PT PULSES PRESENT BILATERALLY VIA DOPPLER. FEET ARE WARM AND DRY. PT WITH NO COMPLAINTS. PT GIVEN TAPIOCA PUDDING (SUGAR FREE) PER PT REQUEST.
[2018-04-25 03:59] LABS: BASOPHILS ABSOLUTE AUTO 0.01 K/mm3 (0.00-0.23); BASOPHILS PERCENT AUTO 0 % (0-2); EOSINOPHILS PERCENT AUTO 0 % (0-6); Hemoglobin 8.6 g/dL (13.5-17.5); IMMATURE GRAN ABSOLUTE AUTO 0.27 K/mm3 (0.00-0.10); IMMATURE GRAN PERCENT AUTO 2 % (0-1); LYMPHOCYTES ABSOLUTE AUTO 0.46 K/mm3 (0.84-5.20); LYMPHOCYTES PERCENT AUTO 3 % (21-46); MONOCYTES ABSOLUTE AUTO 0.68 K/mm3 (0.16-1.47); MONOCYTES PERCENT AUTO 5 % (4-13); Mean Corpuscular HGB 29.8 pg (26.0-34.0); Mean Corpuscular HGB Conc 30.7 g/dL (31.5-36.5); Mean Corpuscular Volume 97 fL (80-100); Mean Platelet Volume 10.9 fL (9.1-12.4); NEUTROPHILS ABSOLUTE AUTO 12.41 K/mm3 (1.96-9.15); NEUTROPHILS PERCENT AUTO 90 % (41-73); Platelet Count 190 K/mm3 (150-400); RDW Coefficient Variation 15.6 % (11.7-14.2); Red Blood Cell Count 2.89 M/mm3 (4.30-5.90); White Blood Cell Count 13.83 K/mm3 (4.00-11.30)
[2018-04-25 04:24] LABS: Alanine Aminotransfer (ALT/SGP 19 U/L (12-78); Albumin, Blood 2.7 g/dL (3.4-5.0); Albumin/Globulin Ratio 0.8 (0.8-1.8); Alk Phos 59 U/L (50-136); Anion Gap 14 mmol/L (6-16); Aspartate Aminotrans (AST/SGOT 10 U/L (12-37); Bilirubin, Total 0.7 mg/dL (0.1-1.0); Blood Urea Nitrogen 54 mg/dL (8-24); Bun/Creatinine Ratio 8.7 (12.0-20.0); CO2, Blood 28 mmol/L (21-32); Calcium, Blood 8.3 mg/dL (8.5-10.1); Chloride, Blood 93 mmol/L (98-108); Creatinine, Blood 6.21 mg/dL (0.60-1.20); Globulin, Blood 3.4 g/dL (2.2-4.0); Glomerular Filtration Rate 9 (60-); Glucose, Blood 221 mg/dL (70-99); Magnesium, Blood 2.4 mg/dL (1.6-2.4); Phosphorus, Blood 6.2 mg/dL (2.5-4.9); Sodium, Blood 135 mmol/L (136-145); Total Protein, Blood 6.1 g/dL (6.4-8.2)
--- NOTE | 2018-04-25 04:47 | NUR ---
FEM-STOP REMOVED; DRESSING APPLIED; SITE REMAINS UNCHANGED FROM PREVIOUS ASSESSMENT.
--- NOTE | 2018-04-25 05:37 | NUR ---
PT'S CALLED AND WAS UPDATED.
--- NOTE | 2018-04-25 07:21 | NUR ---
PT UP TO CHAIR AT 0610. PT TOLERATING WELL. REPORT GIVEN TO KURT WHITT. GROIN SITE ASSESSED AND IS UNCHANGED FROM PREVIOUS ASSESSMENTS. VSS.
--- NOTE | 2018-04-25 07:30 | NUR ---
ASSUMED CARE OF PATIENT; SEE ASSESSMENT CHARTING FOR DETAILS. PATIENT ALERT AND ORIENTED X 3; PLEASANT AND COOPERATIVE. C/O PAIN TO BACK, SCROTAL REGION (VERY SWOLLEN); LEVEL 8/10; WILL GIVE PO PAIN MED. LUNGS CLEAR WITH UPPER AIRWAY RHONCHI WHICH REDUCE AFTER COUGHING. OXYGEN AT 2L/MIN VIA NC. MONITOR NSR WITH RARE ECTOPY; SBP VARIABLE. TO RECEIVE HEMODIALYSIS TODAY; PROBABLY IN THE AFTERNOON. DRESSING TO R TOE AMPUTEE, INTACT. PATIENT UP IN CHAIR AND TOLERATING WELL; TRANSFERS WITH SBA AND USE OF WALKER.
--- NOTE | 2018-04-25 09:00 | NUR ---
DR. Arely MENDOZA HERE; SEE ORDERS.
--- NOTE | 2018-04-25 09:45 | NUR ---
ASSISTED BACK TO BED; REQUIRES FREQUENT REST PERIODS D/T EXERTIONAL DYSPNEA. PHYSICAL TX. ARRIVED SHORTLY AFTER RN HAD GOTTEN PATIENT BACK TO BED; WILL RETURN AROUND NOON TO WORK WITH PATIENT. DILAUDID 1MG IV GIVEN, PER PATIENT REQUEST; PAIN 8/10; SLEEPING SHORTLY AFTER MED. GIVEN.
--- NOTE | 2018-04-25 12:05 | NUR ---
CBG 317; GIVEN 9UNITS Md7LOG PER SLIDING SCALE COVERAGE.
--- NOTE | 2018-04-25 13:45 | NUR ---
PHYSICAL THERAPIST HERE; ASSISTED PATIENT OFF OF BSC AND DID EXERCISES WITH HIM; SEE THERAPY NOTE. OCCUPATIONAL TX. WAS HERE PRIOR TO LUNCH; SEE NOTES.
--- NOTE | 2018-04-25 14:10 | NUR ---
DR. HEART (INTERVENTIONALIST) CAME BY; ASSESSED PATIENTS' R GROIN WHERE SHEATH HAD BEEN; REMAINS SWOLLEN AND BRUISED BUT NOT INCREASED. HEPARIN SUB Q TO BE DISCONTINUED.
--- NOTE | 2018-04-25 14:45 | NUR ---
DIALYSIS NURSE HERE; TO RUN PATIENT (H.D.) AND GIVE 1 UNIT RBC'S DURATION RUN.
--- NOTE | 2018-04-25 18:00 | NUR ---
SUMMARY: DIALYSIS COMPLETED AT THIS TIME; SBP DROPPED INTO 50'S TOWARD THE END AND HD NURSE RETURNED BLOOD BACK TO PATIENT. SBP 70'S WHEN COMPLETED. PATIENT ASLEEP ON CPAP WITH 2L/BLEED IN. ROUSES TO VERBAL STIMULI. BIOX. STAYING HIGH 90'S TO 100% WITH 2L OXYGEN. SPOUSE AT BEDSIDE; ASSISTED PATIENT WITH MEAL WHEN HE WOKE UP; RN ALSO HELPED; PATIENT ABLE TO FEED SELF TOWARDS FINISH OF MEAL; TOLERATED 100% WITHOUT GI UPSET OR DIFF. CHEWING OR SWALLOWING. SBP OVER 100 AND HR 80'S. O2 AT 2L/MIN VIA NC. 2700CC OF FLUID REMOVED DURING DIALYSIS AND PATIENT RECEIVED 1 UNIT RBC. R GROIN SITE REMAINS SWOLLEN AND BRUISED WELL SCROTUM; SLING USED TO LIFT SCROTUM AND PREVENT CHAFING; ICE PACKS APPLIED EARILIER IN DAY. WILL REPORT TO ONCOMING RN.
--- NOTE | 2018-04-25 20:43 | NUR ---
CALLED DR. Arely MENDOZA ABOUT PT'S CONCERN WITH PREDNISONE DOSE BEING LOWERED TODAY. DR. MENDOZA HAS MULTIPLE REASONS AND WILL TALK WITH PT AND AGAIN TOMORROW ABOUT THEM. EDUCATED PT AND ABOUT DISCUSSION. PT IS RESTING IN BED. NO SIGN OF DISTRESS. HAS DEEP PURPLE BRUISING TO SCROTUM AND PENIS. ALSO FROM R GROIN INTO FLANK. OLD WOUND TO R FOOT WITH DRESSING INTACT AND A SKIN TEAR TO R ELBOW WITH MEPILEX DRESSING.
[2018-04-26 04:24] LABS: BASOPHILS ABSOLUTE AUTO 0.03 K/mm3 (0.00-0.23); BASOPHILS PERCENT AUTO 0 % (0-2); EOSINOPHILS PERCENT AUTO 0 % (0-6); Hematocrit 26.8 % (37.0-53.0); Hemoglobin 8.5 g/dL (13.5-17.5); IMMATURE GRAN ABSOLUTE AUTO 0.51 K/mm3 (0.00-0.10); IMMATURE GRAN PERCENT AUTO 4 % (0-1); LYMPHOCYTES ABSOLUTE AUTO 0.62 K/mm3 (0.84-5.20); LYMPHOCYTES PERCENT AUTO 5 % (21-46); MONOCYTES ABSOLUTE AUTO 0.76 K/mm3 (0.16-1.47); MONOCYTES PERCENT AUTO 6 % (4-13); Mean Corpuscular HGB 30.6 pg (26.0-34.0); Mean Corpuscular HGB Conc 31.7 g/dL (31.5-36.5); Mean Corpuscular Volume 96 fL (80-100); Mean Platelet Volume 10.3 fL (9.1-12.4); NEUTROPHILS PERCENT AUTO 86 % (41-73); Platelet Count 155 K/mm3 (150-400); RDW Coefficient Variation 15.5 % (11.7-14.2); RDW Standard Deviation 54.5 fL (35.1-46.3); Red Blood Cell Count 2.78 M/mm3 (4.30-5.90); White Blood Cell Count 13.42 K/mm3 (4.00-11.30)
[2018-04-26 04:42] LABS: Albumin, Blood 2.9 g/dL (3.4-5.0); Anion Gap 12 mmol/L (6-16); Blood Urea Nitrogen 49 mg/dL (8-24); Bun/Creatinine Ratio 8.6 (12.0-20.0); CO2, Blood 26 mmol/L (21-32); Calcium, Blood 8.8 mg/dL (8.5-10.1); Chloride, Blood 92 mmol/L (98-108); Creatinine, Blood 5.71 mg/dL (0.60-1.20); Glomerular Filtration Rate 10 (60-); Glucose, Blood 216 mg/dL (70-99); Magnesium, Blood 2.5 mg/dL (1.6-2.4); Phosphorus, Blood 7.5 mg/dL (2.5-4.9); Potassium, Blood 4.8 mmol/L (3.5-5.5); Sodium, Blood 130 mmol/L (136-145)
--- NOTE | 2018-04-26 05:59 | NUR ---
PT RESTING IN BED. NO CHANGES THIS SHIFT. NO SIGN OF DISTRESS. CALL LIGHT IN REACH.
--- NOTE | 2018-04-26 07:30 | NUR ---
ASSUMED CARE OF PATIENT; SEE ASSESSMENT FOR DETAILS. LUNGS COARSE AND AUDIBLE WHEEZES NOTED; DYSPNEA WITH ANY EXERTION WELL ORTHOPNEA. OXYGEN AT 2L/MIN VIA NC; BIOX. MID TO HIGH 90'S. CPAP WORN DURING SLEEP TIMES WITH 2L/BLEED IN. NO VOIDING (ANURIC); UP TO BSC; PASSED SOME FLATUS BUT NO STOOL; CONT. TO RECEIVE MULTIPLE DOSES OF LACTULOSE T/O DAY. APPETITE GOOD; DENIES GI UPSET. TO HAVE HEMODIALYSIS TODAY AND WILL RECEIVE ANOTHER UNIT OF RBC'S. DILAUDID 2MG IV GIVEN, PRIOR TO TRANSFER FOR CT SCAN; SLEEPY AFTER PAIN MED. BUT ROUSES EASILY.
--- NOTE | 2018-04-26 07:50 | NUR ---
RETURNED FROM CT SCAN THEN ASSISTED OFF CART; AMBULATED, WITH WALKER, TO CHAIR; PILLOWS PLACED TO BACK TO PROTECT AND REDUCE DISCOMFORT. CBG WAS 147; NO INSULIN COVERAGE INDICATED. SITA. 100% OF BREAKFAST.
--- NOTE | 2018-04-26 12:00 | NUR ---
CBG AC LUNCH IS 212; 5UNITS NOVOLOG GIVEN SUB Q. SPOUSE PRESENT; ASSISTING PATIENT WITH LUNCH. PATIENT UP IN CHAIR. PT AND OT HERE EARLIER AND WORKED WITH PATIENT FOR SHORT PERIOD D/T FATIGUE. TO HAVE HEMODIALYSIS TOMORROW AND RECEIVE 1 UNIT RBC.
--- NOTE | 2018-04-26 14:50 | NUR ---
TRANSFER CARE TO JAMAL MON RN. PATIENT CHANGED TO PCU STATUS; NO BEDS AVAILABLE. WILL REMAINS IN ICU 13 FOR NOW.
--- NOTE | 2018-04-26 19:01 | NUR ---
ASSUMED CARE / SHIFT SUMMARY: REPORT RECEIVED FROM KURT Delgadillo RN. ASSUMED CARE OF THIS PT AT APPROX 1450. NO ACUTE CHANGES SINCE ASSUMING CARE. PT REMAINS A&O, COOPERATIVE W/ CARE. HE HAS RESTED WELL INTERMITTENTLY. HE REMAINS ON 2L NC W/ O2 SATS > 90%. SR-ST W/ HR 90-110s. BP LABILE. PT MAKES NO URINE. ENEMA ATTEMPTED FOR BOWEL CARE W/ NO RESULTS. SCROTAL SWELLING REMAINS UNCHANGED. WILL CONTINUE TO MONITOR & REPORT OFF TO ONCOMING RN.
[2018-04-27 03:33] LABS: BASOPHILS ABSOLUTE AUTO 0.01 K/mm3 (0.00-0.23); BASOPHILS PERCENT AUTO 0 % (0-2); EOSINOPHILS PERCENT AUTO 0 % (0-6); Hemoglobin 7.7 g/dL (13.5-17.5); IMMATURE GRAN ABSOLUTE AUTO 0.47 K/mm3 (0.00-0.10); IMMATURE GRAN PERCENT AUTO 4 % (0-1); LYMPHOCYTES ABSOLUTE AUTO 0.56 K/mm3 (0.84-5.20); LYMPHOCYTES PERCENT AUTO 4 % (21-46); MONOCYTES ABSOLUTE AUTO 0.63 K/mm3 (0.16-1.47); MONOCYTES PERCENT AUTO 5 % (4-13); Mean Corpuscular HGB 30.6 pg (26.0-34.0); Mean Corpuscular HGB Conc 32.1 g/dL (31.5-36.5); Mean Corpuscular Volume 95 fL (80-100); NEUTROPHILS ABSOLUTE AUTO 11.74 K/mm3 (1.96-9.15); NEUTROPHILS PERCENT AUTO 88 % (41-73); Platelet Count 132 K/mm3 (150-400); RDW Coefficient Variation 15.2 % (11.7-14.2); RDW Standard Deviation 53.1 fL (35.1-46.3); Red Blood Cell Count 2.52 M/mm3 (4.30-5.90); White Blood Cell Count 13.41 K/mm3 (4.00-11.30)
[2018-04-27 03:55] LABS: Albumin, Blood 2.8 g/dL (3.4-5.0); Anion Gap 16 mmol/L (6-16); Blood Urea Nitrogen 70 mg/dL (8-24); CO2, Blood 22 mmol/L (21-32); Calcium, Blood 8.3 mg/dL (8.5-10.1); Chloride, Blood 91 mmol/L (98-108); Creatinine, Blood 7.76 mg/dL (0.60-1.20); Glomerular Filtration Rate 7 (60-); Glucose, Blood 209 mg/dL (70-99); Magnesium, Blood 2.5 mg/dL (1.6-2.4); Potassium, Blood 5.4 mmol/L (3.5-5.5); Sodium, Blood 129 mmol/L (136-145)
[2018-04-27 04:02] LABS: Phosphorus, Blood 8.2 mg/dL (2.5-4.9)
--- NOTE | 2018-04-27 07:15 | NUR ---
ASSUMED CARE OF PT. PT IS ALERT AND ORIENTED. R GROIN, LOWER ABDOMEN, TESTICLES IS BRUISED. NOTED HEMATOMA TO R GROIN MOSTLY AND A LITTLE GOING ACROSS TO THE LEFT GROIN. PT DENIES PAIN AT THIS TIME.
--- NOTE | 2018-04-27 07:46 | NUR ---
SUMMARY VITALS STABLE THROUGHOUT NIGHT. ASSESSMENTS UNCHANGED. PT COMPLAINING OF CONSTIPATION LAST NIGHT. PT GIVEN TAP WATER ENEMA PER PATIENT AND FAMILY REQUEST. TWO LARGE BM'S SINCE ADMINISTRATION. PT REPORTING CHRONIC PAIN AND MEDICATED PER EMAR. OTHERWISE, PT HAS SLEPT SOUNDLY ALL MORNING WITH CPAP IN PLACE. GROIN SWELLING/HEMATOMA UNCHANGED. REPORT TO DAY SHIFT RN.
--- NOTE | 2018-04-27 09:16 | NUR ---
PT IS WHEELED TO THE DIALYSIS AT THIS TIME.
--- NOTE | 2018-04-27 11:38 | NUR ---
DR. PALMA CAME TO SEE PATIENT IN THE DIALYSIS UNIT. UPDATED HIM OF PT'S STATUS.
--- NOTE | 2018-04-27 13:14 | NUR ---
BACK IN THE ROOM. DIALYSIS DONE. EXPLAINED TO PT AND FAMILY REGARDING PAIN MANAGEMENT.
--- NOTE | 2018-04-27 15:23 | NUR ---
DRESSING CHANGED TO R AMPUTATED 4 TOE. DEEP WOUND, COLLAGENASE DRESSING APPLIED. PT AFEBRILE.
--- NOTE | 2018-04-27 15:55 | NUR ---
DR. PALMA WAS NOTIFIED THAT AN MRI IS NOT FEASIBLE DUE TO LESS INFORMATION REGARDING MULTIPLE STENTS. PT'S UNABLE TO PROCURE INFORMATION OF STENTS PLACED FROM [place].
--- NOTE | 2018-04-27 17:32 | NUR ---
PT WAS HAVING SLIGHT SHORTNESS OF BREATH BEFORE TRANSFERING FROM THE BED TO THE [facility] FOR CT SCAN. PT HAD DEVELOP MORE INCREASE SHORTNESS OF BREATH. MORE WHEEZING AND COARSE BREATH SOUNDS WITH CRACKLES. DR. LUONG WAS NOTIFIED REGARDING THIS AND PATIENT WAS PLACED ON BIPAP SETTINGS WELL.
--- NOTE | 2018-04-27 19:22 | NUR ---
PT'S BREATH SOUNDS STILL COARSE AND SOME CRACKLES BUT STATED BIPAP HAS MADE HIS BREATHING IMPROVED. PT STATED HE IS READY FOR THE CT SCAN. RADIOLOGY NOT READY FOR PATIENT YET. BIPAP SETTINGS: 03/10 FIO2 30% WITH O2 SATURATION CURRENTLY @ 98%. PT SEEMED TO BE COMFORTABLE AT THIS TIME. VERY DIFFICULT DOING IV STARTS.
--- NOTE | 2018-04-27 20:30 | NUR ---
PT TO CT VIA GURKAEL AND BIPBRITTANY ASSISTED BY DURGA REGAN AND ONIEL ELECTRICAL ACCESSORIES II ASSEMBLER.
--- NOTE | 2018-04-27 22:49 | NUR ---
PT BACK FROM CT AT APPRX 2049. PT MOVED TO BED AND PREPPED FOR EVENING MEAL AFTER GETTING A BREATHING TX. PT A+O X4, LS COARSE ON RIGHT SIDE T/O LESS ON LEFT. PT WEARING BIPAP AT CHANGE OF SHIFT ALSO TO CT. PT CHANGED TO N/C 3L DURING MEAL AND REMAINED 96-99% THEN REQUESTED BACK ON BIPAP AFTER MEAL FINISHED. PT TURNED AND COCCYX ASSESSED-SKIN TO RIGHT BUTTOCKS NAYLOR AND NON-BLANCHING, APPEARS THAT "BLISTERS" FROM PREVIOUS ASSESSMENT WHEN PICTURE WAS TAKEN HAVE BROKEN AND DRAINED-CALAZYME OINTMENT APPLIED. PT'S SPOUSE IN ROOM AND STATED SHE USES A+D OINTMENT AT HOME. PT IMMEDIATELY FELL ASLEEP AFTER MEAL EATEN AND BIPAP PLACED. PT CHANGED TO PCU STATUS R/T HAVING TO BE ON BIPAP. WILL CONTINUE TO MONITOR.
--- NOTE | 2018-04-28 02:30 | NUR ---
PT TOLERATED BEING ON NC 3L WHILE AWAKE WATCHING TV WITH SATS 99-100%. PT NOW WITH BIPAP BACK ON AND TURNED TO LEFT.
[2018-04-28 03:35] LABS: Hematocrit 28.3 % (37.0-53.0); Hemoglobin 9.2 g/dL (13.5-17.5); Mean Corpuscular HGB 30.3 pg (26.0-34.0); Mean Corpuscular HGB Conc 32.5 g/dL (31.5-36.5); Mean Corpuscular Volume 93 fL (80-100); Mean Platelet Volume 11.1 fL (9.1-12.4); Platelet Count 122 K/mm3 (150-400); RDW Coefficient Variation 16.3 % (11.7-14.2); RDW Standard Deviation 55.2 fL (35.1-46.3); Red Blood Cell Count 3.04 M/mm3 (4.30-5.90); White Blood Cell Count 13.82 K/mm3 (4.00-11.30)
[2018-04-28 03:54] LABS: Albumin, Blood 2.8 g/dL (3.4-5.0); Albumin/Globulin Ratio 0.8 (0.8-1.8); Bilirubin, Total 0.4 mg/dL (0.1-1.0); Bun/Creatinine Ratio 9.7 (12.0-20.0); C-REACTIVE PROTEIN, EXT RANGE 1.84 mg/dL (0.000-0.300); Calcium, Blood 8.5 mg/dL (8.5-10.1); Creatinine, Blood 5.78 mg/dL (0.60-1.20); Globulin, Blood 3.6 g/dL (2.2-4.0); Magnesium, Blood 2.6 mg/dL (1.6-2.4); Phosphorus, Blood 6.2 mg/dL (2.5-4.9); Potassium, Blood 5.7 mmol/L (3.5-5.5); Total Protein, Blood 6.4 g/dL (6.4-8.2)
--- NOTE | 2018-04-28 04:32 | NUR ---
PT AWAKENS WITH REQUEST TO BREAK FROM BIPAP. PT LS COARSE T/O WITH EXP WHEEZE RLL. OHERWISE PT A+O, VSS.
[2018-04-28 04:47] LABS: BAND PERCENT MAN 4 % (0-8); BASOPHILS PERCENT MAN 0 % (0-2); EOSINOPHILS PERCENT MAN 0 % (0-6); LYMPHOCYTES ABSOLUTE MAN 0.27 K/mm3 (0.84-5.20); LYMPHOCYTES PERCENT MAN 2 % (21-46); MONOCYTES ABSOLUTE MAN 0.13 K/mm3 (0.16-1.47); MONOCYTES PERCENT MAN 1 % (4-13); MYELOCYTE ABSOLUTE MAN 0.13 K/mm3 (0.00-0.00); MYELOCYTE PERCENT MAN 1 % (0-0); NEUTROPHILS ABSOLUTE MAN 13.26 K/mm3 (1.96-9.15); SEG NEUTROPHILS PERCENT MAN 92 % (41-73); TOTAL CELLS COUNTED 100
--- NOTE | 2018-04-28 08:10 | NUR ---
ASSUMED CARE: REPORT RECEIVED FROM ALVERTO Smith RN. ASSUMED CARE OF THIS PT AT APPROX 0700. ON ASSESSMENT, THE PT IS RESTING QUIETLY IN BED. HE STS HE IS HAVING SOME CHRONIC PAIN TO HIS LOW BACK & NEUROPATHY TO HIS BLE. MEDS PER EMAR. PLAN IS FOR DIALYSIS THIS AM. WILL CONTINUE TO MONITOR & UDPATE NEEDED.
--- NOTE | 2018-04-28 09:30 | NUR ---
DIALYSIS: PT TAKEN TO DIALYSIS VIA BED BY TERESA Askew RN.
--- NOTE | 2018-04-28 18:36 | NUR ---
SHIFT SUMMARY: PT REMAINS A&O, PLEASANT & COOPERATIVE W/ CARE. HE HAS HAD C/O CHRONIC PAIN TO LOW BACK & BUTTOCKS, MEDS PER EMAR. DIALYSIS COMPLETED THIS AM. LS ARE COARSE/RHONCHI T/O, PT DOES NOT CLEAR W/ COUGHING. HE HAS BEEN ON 2L NC PRN & BIPAP, SETTINGS: 14/8 & 30% FiO2, PRN. MONITOR SHOWS SR W/ HR 80-90s. BP REMAINS LABILE. PT HAS REFUSED LACTULOSE THIS SHIFT BECAUSE HIS STLS HAVE BEEN LOOSE PER HIS REPORT. THIS HAS NOT BEEN VISUALIZED BY THIS RN. PT IS ANURIC R/T DIALYSIS. SCROTUM REMAINS SWOLLEN & DARK PURPLE IN COLOR. DIFFUSE BRUISING TO R UPPER LEG & ABDOMEN IS UNCHANGED AT THIS TIME. WILL CONTINUE TO MONITOR & REPORT OFF TO ONCOMING RN.
--- NOTE | 2018-04-28 19:15 | NUR ---
ASSUMED PT CARE; BEDSIDE REPORT GIVEN PT UP IN CHAIR WITH AT SIDE. ALERT AND ORIENTED; PLEASANT AND COOPERATIVE WITH CARE. PT REQUESTED HE WOULD LIKE TO GO TO BED WITHIN THE NEXT THIRTY MINUTES; INFORMED BOTH PT AND THAT I HAD ONE MORE PT TO GET REPORT ON AND THEN I'D BE BACK IN TO ASSIT WITH GETTING HIM BACK TO BED; BOTH IN AGREEMENT. CALL LIGHT IN REACH; NO SIGNS OF DISTRESS AT THIS TIME.
[2018-04-28 22:40] LABS: Adenovirus Not Detected (NOT DETECT); Bordetella pertussis Not Detected (NOT DETECT); Chlamydophila pneumoniae Not Detected (NOT DETECT); Coronavirus 229E Not Detected (NOT DETECT); Coronavirus HKU1 Not Detected (NOT DETECT); Coronavirus NL63 Not Detected (NOT DETECT); Coronavirus OC43 Not Detected (NOT DETECT); Human Metapneumovirus Not Detected (NOT DETECT); Human Rhinovirus/Enterovirus Not Detected (NOT DETECT); Influenza A Not Detected (NOT DETECT); Influenza A/2009-H1 Not Detected (NOT DETECT); Influenza A/H1 Not Detected (NOT DETECT); Influenza A/H3 Not Detected (NOT DETECT); Influenza B Not Detected (NOT DETECT); Mycoplasma pneumoniae Not Detected (NOT DETECT); Parainfluenza Virus 1 Not Detected (NOT DETECT); Parainfluenza Virus 2 Not Detected (NOT DETECT); Parainfluenza Virus 3 Not Detected (NOT DETECT); Parainfluenza Virus 4 Not Detected (NOT DETECT); Respiratory Syncytial Virus Not Detected (NOT DETECT)
[2018-04-29 03:28] LABS: Hematocrit 31.6 % (37.0-53.0); Hemoglobin 10.1 g/dL (13.5-17.5)
[2018-04-29 03:44] LABS: Albumin, Blood 2.8 g/dL (3.4-5.0); Anion Gap 11 mmol/L (6-16); Blood Urea Nitrogen 55 mg/dL (8-24); CO2, Blood 28 mmol/L (21-32); Calcium, Blood 9.1 mg/dL (8.5-10.1); Chloride, Blood 95 mmol/L (98-108); Creatinine, Blood 5.01 mg/dL (0.60-1.20); Glomerular Filtration Rate 12 (60-); Glucose, Blood 182 mg/dL (70-99); Magnesium, Blood 2.6 mg/dL (1.6-2.4); Phosphorus, Blood 5.3 mg/dL (2.5-4.9); Potassium, Blood 5.2 mmol/L (3.5-5.5); Sodium, Blood 134 mmol/L (136-145)
--- NOTE | 2018-04-29 06:30 | NUR ---
END OF SHIFT SUMMARY PT HAS BEEN ALERT AND ORIENTED T/O NIGHT; PLEASANT AND COOPERATIVE WITH CARE. AT BEDSIDE UP UNTIL 2129. CHANGED DRESSING TO PTS RIGHT 4TH DIGIT TOE THAT WAS AMPUTATED; STATED THERE WAS AN ODOR; I DID NOT SMELL AN ODOR UPON MY ASSESSMENT OF WOUND; THERE APPEARS TO BE TUNNELING WITH SEROSANGUINEOUS DRAINAGE AND YELLOW/BROWN DRAINAGE NOTED TO DRESSING. STATED THAT ORTHO PHYSICIAN IS AWARE OF TUNNELING AND SHE WOULD MAKE HIM AWARE OF THE ODOR. PT PLACED ON BIPAP WITH SETTINGS 14/8; FIO2 30%; OXYGEN SATURATIONS 100%. LUNG SOUNDS STILL REMAIN RHONCHUS T/O WITH WEAK, NON-PRODUCTIVE COUGH; FLUTTER VALVE AND INCENTIVE SPIROMETER ENCOURAGED EVERY 4 HOURS; PT COMPLIANT WITH USE. CONCERNED THAT PT NEEDS TO GO HOME ON BIPAP AND WOULD LIKE TO SPEAK WITH THE PHYSICIANS ABOUT THIS. PT ALREADY WEARS CPAP AND OXYGEN AT HOME; THEREFORE, WILL INFORM DAY SHIFT TO MAYBE CONSULT WITH PT'S PULMONOLIGIST PRIOR TO D/C FROM HOSPITAL. RIGHT GROIN SITE REMAINS WITH HEMATOMA THAT HAS NOT CHANGED IN SIZE. EXCESSIVE SWELLING AND BRUISING REMAIN TO SCROTOM. MEPILEX DRESSING PLACED TO COCCYX/SACRUM REGION D/T PT HAVING OPEN AREAS SECONDARY TO MOISTURE ASSOCIATED SKIN DAMAGE. MEPILEX REMAINS IN PLACE TO UPPER BACK. PT OBTAINED A SKIN TEAR SOME HOW, WHICH WAS BLEEDING; THEREFORE, I CLEANSED WITH IODING, ROLLED SKIN EDGES BACK TOGETHER, AND PLACED STERI STRIPS; COVERED WITH TRANSPARENT DRESSING AND WRAPPED WITH KERLEX FOR PRESSURE TO STOP BLEEDING; PT DOESN'T RECALL HOW HE OBTAINED THIS SKIN TEAR. SKIN IS VERY FRAGILE. PT SLEPT THROUGH MOST OF NIGHT WITH NO ISSUES. CALL LIGHT IS WITHIN REACH AND PT APPEARS COMFORTABLE AT THIS TIME; DOES NOT APPEAR TO BE IN ANY DISTRESS.
--- NOTE | 2018-04-29 08:39 | NUR ---
ASSUMED CARE: REPORT RECEIVED FROM BAR Peres RN. ASSUMED CARE OF THIS PT AT APPROX 0700. ON ASSESSMENT, THE PT IS AWAKE, RECEIVING NEB TX THROUGH BIPAP MASK. HE IS A&O, PLEASANT & COOPERATIVE W/ CARE. HE REQUESTS 2L NC BE USED WHEN BIPAP REMOVED & IS NOW SITING UP IN BED EATING BREAKFAST. HE HAS SOME C/O OF CHRONIC BACK PAIN & REQUESTS PAIN MEDS, MEDS PER EMAR. ASSESSMENT CHARTED. PLAN IS FOR DIALYSIS THIS AM AT APPROX 0900. WILL CONTINUE TO MONITOR & UPDATE NEEDED.
--- NOTE | 2018-04-29 09:10 | NUR ---
DIALYSIS: PT TAKEN TO DIALYSIS VIA BED AT APPROX 0910.
--- NOTE | 2018-04-29 12:40 | NUR ---
RETURN TO ROOM: PT BACK FROM DIALYSIS AT APPROX 1220. HE IS UP IN THE CHAIR, EATING LUNCH AT THIS TIME. NO C/O PAIN CURRENTLY. STS HE MAY WANT TO GO ON THE BIPAP AFTER FINISHING MEAL. WILL CONTINUE TO MONITOR & UPDATE NEEDED.
--- NOTE | 2018-04-29 18:47 | NUR ---
SHIFT SUMMARY: NO ACUTE CHANGES THIS SHIFT. PT A&O, PLEASANT & COOPERATIVE. LS REMAIN COARSE T/O, PT USING 2L NC PRN & BIPAP (14/8 & 30%) PRN. COUGH IS MOIST BUT PT STS NONPRODUCTIVE. MONITOR SHOWS NSR W/ HR 80s. PT TAKING LACTULOSE TODAY FOR CHRONIC CONSTIPATION W/ NO RESULTS. HE HAS VOIDED A SMALL UNMEASURED AMNT THIS SHIFT BUT IS ANURIC MOST DAYS R/T DIALYSIS, WHICH WAS COMPLETED TODAY. SCROTUM REMAINS SWOLLEN & BRUISED, ALTHOUGH SWELLING IS IMPROVED SLIGHTLY. SCATTERED BRUISING TO ABD & R LEG REMAINS. DOPPLER USED TO FIND PEDAL PULSES BILATERALLY, POST TIB PULSES PALPABLE. WILL CONTINUE TO MONITOR & REPORT OFF TO ONCOMING RN.
--- NOTE | 2018-04-29 22:17 | NUR ---
CARE ASSUMED REPORT RECEIVED, CARE ASSUMED AT 1900. VITALS STABLE WITH EXCEPTION OF BORDERLINE BLOOD PRESSURE, WHICH IS CONSISTENT WITH PREVIOUS READINGS. PT ASYMPTOMATIC. PT SPENT EVENING IN RECLINER, STAND BY ASSIST FOR EVENING ADL'S AND TO BED. SEE ASSESSMENTS/FLOWSHEETS.
--- NOTE | 2018-04-29 22:30 | NUR ---
CARE ASSUMED REPORT RECEIVED, CARE ASSUMED AT 1900. UPON ASSUMPTION OF CARE, PT ATTEMPTING TO HAVE BOWEL MOVEMENT LAYING ON LEFT SIDE WITH AT BEDSIDE. PT AND DENY NEEDS. VITALS STABLE. SEE FLOWSHEET/ASSESSMENTS. PT ON AND OFF BIPAP PER PATIENT PREFERENCE. MEDICATED ONCE FOR PAIN AND HAS SLEPT INTERMITTENTLY SINCE.
[2018-04-30 03:08] LABS: BASOPHILS ABSOLUTE AUTO 0.02 K/mm3 (0.00-0.23); BASOPHILS PERCENT AUTO 0 % (0-2); EOSINOPHILS ABSOLUTE AUTO 0.01 K/mm3 (0.00-0.68); EOSINOPHILS PERCENT AUTO 0 % (0-6); Hematocrit 32.7 % (37.0-53.0); Hemoglobin 10.4 g/dL (13.5-17.5); IMMATURE GRAN ABSOLUTE AUTO 0.39 K/mm3 (0.00-0.10); IMMATURE GRAN PERCENT AUTO 3 % (0-1); LYMPHOCYTES ABSOLUTE AUTO 0.47 K/mm3 (0.84-5.20); LYMPHOCYTES PERCENT AUTO 4 % (21-46); MONOCYTES ABSOLUTE AUTO 0.53 K/mm3 (0.16-1.47); MONOCYTES PERCENT AUTO 4 % (4-13); Mean Corpuscular HGB 30.9 pg (26.0-34.0); Mean Corpuscular HGB Conc 31.8 g/dL (31.5-36.5); Mean Platelet Volume 11.5 fL (9.1-12.4); NEUTROPHILS ABSOLUTE AUTO 11.87 K/mm3 (1.96-9.15); NEUTROPHILS PERCENT AUTO 89 % (41-73); Platelet Count 135 K/mm3 (150-400); RDW Coefficient Variation 15.5 % (11.7-14.2); RDW Standard Deviation 54.9 fL (35.1-46.3); Red Blood Cell Count 3.37 M/mm3 (4.30-5.90); White Blood Cell Count 13.29 K/mm3 (4.00-11.30)
[2018-04-30 03:09] LABS: Mean Corpuscular Volume 97 fL (80-100)
[2018-04-30 03:29] LABS: Albumin, Blood 2.8 g/dL (3.4-5.0); Albumin/Globulin Ratio 0.7 (0.8-1.8); Bilirubin, Total 0.6 mg/dL (0.1-1.0); Calcium, Blood 9.3 mg/dL (8.5-10.1); Creatinine, Blood 4.83 mg/dL (0.60-1.20); Magnesium, Blood 2.9 mg/dL (1.6-2.4); Potassium, Blood 4.6 mmol/L (3.5-5.5); Total Protein, Blood 6.8 g/dL (6.4-8.2)
--- NOTE | 2018-04-30 06:39 | NUR ---
SUMMARY SINCE PREVIOUS NOTE, PT HAS SLEPT ON AND OFF, AROUSING EASILY. PT HAS CALLED APPROPRIATELY FOR NEEDS. REPORTING ADEQUATE PAIN MANAGEMENT SINCE PAIN MED ADMINISTRATION. VITALS STABLE. ASSESSMENT UNCHANGED.
--- NOTE | 2018-04-30 07:36 | NUR ---
ASSUMED CARE: REPORT RECEIVED FROM PARISH Paul RN. ASSUMED CARE OF THIS PT AT APPROX 0700. ON ASSESSMENT, PT IS RESTING QUIETLY & USING BIPAP. HE AWAKENS EASILY TO VERBAL STIMULI & HAS TAKEN BIPAP OFF FOR THE MORNING. O2 SATS > 92% ON RA. ASSESSMENT CHARTED. PT DENIES PAIN OR NEEDS THIS AM. WILL CONTINUE TO MONITOR & UPDATE NEEDED.
--- NOTE | 2018-04-30 19:16 | NUR ---
SHIFT SUMMARY: PT REMAINS A&O, PLEASANT & COOPERATIVE W/ CARE. HE HAS RESTED QUIETLY FOR MOST OF THE AFTERNOON. HE CONTINUES USING 2L NC OR BIPAP (14/8 & 30% FiO2) PRN SOB. MONITOR SHOWS SR W/ HR 80s. PT HAS HAD C/O PAIN FROM "[facility]" IN HIS MOUTH TODAY, PT's IS CONCERNED THAT HE MAY HAVE THRUSH. PT HAS NOT VOIDED THIS SHIFT, HE IS ANURIC MOST DAYS R/T DIALYSIS. SCROTUM REMAINS DARK BLUE/PURPLE BUT SWELLING IS IMPROVED. WILL CONTINUE TO MONITOR & REPORT OFF TO ONCOMING RN.
--- NOTE | 2018-04-30 21:25 | NUR ---
PROVIDER COMMUNICATION UPDATED DR. VERAS ON PT'S LACK OF IV ACCESS AND [address] VERAS, PT OK TO SKIP THIS DOSE. PLAN TO CONTINUE ATTEMPTING TO GAIN IV ACCESS.
--- NOTE | 2018-04-30 21:30 | NUR ---
BIPAP PT CHANGED OVER TO M-SERIES BIPAP PER RT SHAI AND TOLERATING WELL.
[2018-05-01 04:15] LABS: Hemoglobin 10.2 g/dL (13.5-17.5)
[2018-05-01 04:33] LABS: Albumin, Blood 2.8 g/dL (3.4-5.0); Anion Gap 15 mmol/L (6-16); Blood Urea Nitrogen 94 mg/dL (8-24); Bun/Creatinine Ratio 14.4 (12.0-20.0); CO2, Blood 25 mmol/L (21-32); Calcium, Blood 9.2 mg/dL (8.5-10.1); Chloride, Blood 93 mmol/L (98-108); Creatinine, Blood 6.54 mg/dL (0.60-1.20); Glomerular Filtration Rate 9 (60-); Glucose, Blood 245 mg/dL (70-99); Phosphorus, Blood 5.9 mg/dL (2.5-4.9); Sodium, Blood 133 mmol/L (136-145)
--- NOTE | 2018-05-01 04:46 | NUR ---
IV ACCESS MULTIPLE RN'S ATTEMPTED TO GAIN IV ACCESS UNSUCCESSFULLY THROUGHOUT NIGHT. DR. BECK UPDATED. SCHEDULED IV MEDICATIONS CHANGED TO ORAL.
--- NOTE | 2018-05-01 06:35 | NUR ---
CT COMPLETE PT TO CT WITH STILL PUMP OPERATOR. PT PLACED ON [employer] DISPATCHER. PT BACK TO ROOM AND RETURNED TO ICU MONITOR.
--- NOTE | 2018-05-01 07:36 | NUR ---
SUMMARY VITALS STABLE THROUGHOUT NIGHT. SEE FLOWSHEETS/ASSESSMENTS. PT MEDICATED ONCE FOR PAIN AND HAS DECLINED INTERVENTIONS SINCE. TOLERATING ADL'S. REPORT TO PERI DIAZ.
--- NOTE | 2018-05-01 08:49 | NUR ---
PT AWAKE SITTING UP IN BED. C/O CHRONIC PAIN /10 TO RIGHT BACK,HIP, BUTTOCK, AND OTHER PLACES. PERCOCET GIVEN. PT C/O PAIN TO MOUTH. 2 ULCERS VISUALIZED; ONE TO TONGUE AND ONE TO LEFT CHEEK. RIGHT GROIN/SCROTUM/HIP HEMATOMA REVIEWED AND ASSESSED W NIGHT RN; NO CHANGE; IMPROVED OVERALL. RIGHT DP 1+ PULSE. PT TO HAVE HD TODAY. HTN TREATED W ORDERED HYDRALAZINE PO. PLAN OOB TO CHAIR TODAY TOLERATED.
--- NOTE | 2018-05-01 10:44 | NUR ---
PT TO HD AT 0949. PT PLANS ON WORKING W PT AFTER HD TODAY
--- NOTE | 2018-05-01 17:59 | NUR ---
PT BP 202/92. DR FLOWER CALLED, NTG PASTE, CLONIDINE, TOPROL XL ORDERED X1. PT ASYMPTOMATIC. SITTING UP IN CHAIR EATING DINNER. C/O PAIN IN MOUTH FROM ULCERS.
--- NOTE | 2018-05-01 19:42 | NUR ---
PT SLEEPING IN BED W/O COMPLAINTS. BP DOWN 155/57. REPORT GIVEN TO ONCOMING RN; PER [facility] COORDINATOR PT MAY BE DC'D HOME; BIPAP IN PROCESS OF BEING APPROVED BY PT'S INSURANCE. PT NOTIFIED. REPORT GIVEN TO ONCOMING RN.
--- NOTE | 2018-05-01 21:46 | NUR ---
BLOOD PRESSURE BP LOW, NITRO PASTE REMOVED. PT ALERT, ORIENTED AND FOLLOWING COMMANDS.
--- NOTE | 2018-05-02 02:00 | NUR ---
BLOOD SUGARS THIS EVENING AROUND 1999 PT'S BRINGS IN MILKSHAKE FOR HERSELF. PT REQUESTING SIP. REMINDED PT OF ELEVATED BLOOD SUGARS AND PT HAD SIPS OF MILKSHAKE REGARDLESS. PT'S STATES, "IF HIS BLOOD SUGARS ARE ALREADY 300 A MILKSHAKE WON'T MAKE IT GO UP THAT MUCH MORE." RE-EDUCATED. PT AND PT'S UNINTERESTED. 2100 BLOOD SUGAR ELEVATED. DISCUSSED WITH AILYN BERGMAN. ONE TIME CBG CHECK AND INSULIN ADMINSTRATION PER AILYN BERGMAN ORDERS.
[2018-05-02 04:03] LABS: Hematocrit 33.7 % (37.0-53.0); Hemoglobin 10.6 g/dL (13.5-17.5)
[2018-05-02 04:22] LABS: Albumin, Blood 2.8 g/dL (3.4-5.0); Anion Gap 12 mmol/L (6-16); Blood Urea Nitrogen 63 mg/dL (8-24); Bun/Creatinine Ratio 12.4 (12.0-20.0); CO2, Blood 29 mmol/L (21-32); Chloride, Blood 97 mmol/L (98-108); Creatinine, Blood 5.08 mg/dL (0.60-1.20); Glomerular Filtration Rate 12 (60-); Glucose, Blood 226 mg/dL (70-99); Phosphorus, Blood 4.4 mg/dL (2.5-4.9); Potassium, Blood 4.8 mmol/L (3.5-5.5); Sodium, Blood 138 mmol/L (136-145)
--- NOTE | 2018-05-02 06:47 | NUR ---
SUMMARY BP HAS CONTINUED ON LOWER SIDE SINCE PREVIOUS NOTE. PT ASYMPTOMATIC. OTHERWISE, VITALS STABLE. PT HAS SLEPT INTERMITTENTLY, AROUSING EASILY FOR REASSESSMENTS. SINCE BP INITIALLY LOW, PAIN MEDICINE HELD AND PT EDUCATED ON REASON. PT AGREEABLE. PT REQUESTED PAIN MEDICINE ONCE APPROX 20 MINUTES AFTER INITIAL LOW BLOOD PRESSURE AND WAS RE-EDUCATED. SINCE THEN, PT HASN'T REQUESTED PAIN MEDICINE AND HAS APPEARED COMFORTABLE. OTHERWISE, ASSESSMENTS UNCHANGED.
--- NOTE | 2018-05-02 07:20 | NUR ---
RECEIVED REPORT FROM PERI LUGO, AND ASSUMED CARE OF PT.
--- NOTE | 2018-05-02 10:50 | NUR ---
ULTRASOUND AT BEDSIDE TO ULTRASOUND LEGS.
--- NOTE | 2018-05-02 12:20 | NUR ---
REPORT CALLED TO JADIEL, MEDICAL UNIT RN, WHOM WILL ASSUME CARE WHEN PT TRANSFERS TO ROOM 342.
--- NOTE | 2018-05-02 12:30 | NUR ---
[facility] AT BEDSIDE.
--- NOTE | 2018-05-02 13:11 | NUR ---
PATIENT TRANSFERRED TO ROOM 342, TAKEN BY BUTCH HARDIN, VIA BED.
--- NOTE | 2018-05-02 20:24 | NUR ---
SHIFT SUMMARY PATIENT A&O X4, 1PA TO BATHROOM. C/O PAIN OF RIGHT BACK, HIP, AND SHOULDERS. MEDICATED PER E MAR. TRASNFERED FROM ICU 13. DENIES ANY SOB. CONT PULSE OX IN PLACE. CPAP ON WHILE ASLEEP THIS SHIFT. TELE NSR. BRUISING TO THE RIGHT HIP, ABD, SCROTUM, AND PENIS. PICTURES TAKEN AND WOUND CARE/DRESSING CHANGE DONE TO RIGHT COCCYX AND MIDDLE BACK WOUNDS. NO ACUTE CHANGES THIS SHIFT.
--- NOTE | 2018-05-03 05:22 | NUR ---
SHIFT SUMMARY PT A/O NO C/O PAIN. MULTIPLE BRUISING T/O BODY. WORE CPAP AND SLEPT THROUGH THE NIGHT. ABD SEVERELY DISTENDED AND VERY HARD NOTIFIED ALEE HEAVY MOBILE EQUIPMENT OPERATOR NO NEW ORDERS. NO STOOL SAMPLE. CALL LIGHT IN REACH
[2018-05-03 09:42] LABS: Hematocrit 32.6 % (37.0-53.0); Hemoglobin 10.6 g/dL (13.5-17.5)
[2018-05-03 10:03] LABS: Albumin, Blood 2.7 g/dL (3.4-5.0); Anion Gap 13 mmol/L (6-16); Blood Urea Nitrogen 87 mg/dL (8-24); Bun/Creatinine Ratio 13.6 (12.0-20.0); CO2, Blood 26 mmol/L (21-32); Calcium, Blood 8.9 mg/dL (8.5-10.1); Chloride, Blood 91 mmol/L (98-108); Creatinine, Blood 6.38 mg/dL (0.60-1.20); Glomerular Filtration Rate 9 (60-); Glucose, Blood 139 mg/dL (70-99); Phosphorus, Blood 4.6 mg/dL (2.5-4.9); Sodium, Blood 130 mmol/L (136-145)
[2018-05-03] MEDS ORDERED: Renvela800 MG PO (13:50)
[2018-05-03] MEDS ORDERED: PRED10 PO (13:57)
[2018-05-03] MEDS ORDERED: AMOCLA500 PO (13:58)
[2018-05-03] MEDS ORDERED: NEPHRO-VITE RX1 EACH PO (13:59)
[2018-05-03] MEDS ORDERED: HYDRA25 PO (14:01)
[2018-05-03] MEDS ORDERED: Pulmicort1 MG/2 ML INH (14:01)
[2018-05-03] MEDS ORDERED: ALBU3IS INH (14:02)
[2018-05-03] MEDS ORDERED: GUAI600T33 PO (14:02)
[2018-05-03] MEDS ORDERED: Amitiza24 MCG PO (14:05)
[2018-05-03] MEDS ORDERED: NYST237S PO (14:08)
--- NOTE | 2018-05-03 16:09 | NUR ---
PT.'S DR CALLED CHANGED MED REC FOR PT'S DISCHARGE. WILL BE PREDNISONE AT 30 MG FOR 30 DAYS. [employer] WILL MANAGE TAPERING DOSAGE, DURING FOLLOW UP THEY SEE FIT. PT'S STATES HE IS ON 80 MG PER DAY AT HOME NORMALLY. CALLED PT'S PHARMACY TO UPDATE THE ORDER. CHARGE CORRECTED THE MED REC AND DISCHARGE INSTRUCTIONS.
--- NOTE | 2018-05-03 16:11 | NUR ---
DISCHARGE NOTE PT AND PROVIDED WITH HARDCOPY AND VERBAL INSTRUCTIONS FOR DISCHARGE MEDICATIONS, DIAGNOSES, AND FOLLOW UP APPOINTMENTS. NO IV ACCESS. PT'S GATHERED UP PERSONAL POSSESSIONS AND DRESSED THE PT. SHE PROVIDED TRANSPORT HOME. MEDICATIONS WERE FAXED TO PREFERED PHARMACY (FOLLOW UP PHONE CALL WAS MADE TO CORRECT PREDNISONE DOSEAGE). AN RN ACCOMPANIED THE PT TO HIS PERSONAL VEHICLE VIA WHEELCHAIR. PT AND HAD NO FURTHER QUESTIONS.
[2018-05-08] MEDS ORDERED: PRED20 PO (11:22)
[2018-05-08] MEDS ORDERED: NEPHRO-VITE RX1 EACH PO (11:28)
[2018-05-08] MEDS ORDERED: HYDR25SUP PR (11:29)
[2018-05-08] MEDS ORDERED: TAMS.4ER PO (11:29)
[2018-05-08] MEDS ORDERED: MOVANTIK12.5 MG PO (11:29)
[2018-05-08] MEDS ORDERED: GAVILAX17 GM PO (11:30)
== END 2018-05-03 16:07 | disposition home health service (06) | DRG 270 ==
LOC: ER 10:38 → MEDS 16:20 → ERHOLD 16:20 → ICUW 16:20 → MEDS 18:35 → ICUW 04-24 18:00 → MEDS 05-02 13:02
PROVIDERS: Family Medicine; Hospitalist; Internal Medicine; Internal Medicine Nephrology; ADMIT Family Medicine
PROC: 04CQ3ZZ Extirpation of Matter from Left Anterior Tibial Artery, Percutaneous Approach (ICD-10-PCS; principal; 2018-04-24)
PROC: 047N3Z1 Dilation of Left Popliteal Artery using Drug-Coated Balloon, Percutaneous Approach (ICD-10-PCS; 2018-04-24)
PROC: 047L3Z1 Dilation of Left Femoral Artery using Drug-Coated Balloon, Percutaneous Approach (ICD-10-PCS; 2018-04-24)
PROC: B41D1ZZ Fluoroscopy of Aorta and Bilateral Lower Extremity Arteries using Low Osmolar Contrast (ICD-10-PCS; 2018-04-24)
PROC: 5A09357 Assistance with Respiratory Ventilation, Less than 24 Consecutive Hours, Continuous Positive Airway Pressure (ICD-10-PCS; 2018-04-24)
PROC: 30233N1 Transfusion of Nonautologous Red Blood Cells into Peripheral Vein, Percutaneous Approach (ICD-10-PCS; 2018-04-25)
DX: I74.3 Embolism and thrombosis of arteries of the lower extremities (principal); N18.6 End stage renal disease; J69.0 Pneumonitis due to inhalation of food and vomit; S32.010A Wedge compression fracture of first lumbar vertebra, initial encounter for closed fracture; J44.1 Chronic obstructive pulmonary disease with (acute) exacerbation; N25.81 Secondary hyperparathyroidism of renal origin; I13.0 Hypertensive heart and chronic kidney disease with heart failure and stage 1 through stage 4 chronic kidney disease, or unspecified chronic kidney disease; E87.1 Hypo-osmolality and hyponatremia; E66.2 Morbid (severe) obesity with alveolar hypoventilation; I50.30 Unspecified diastolic (congestive) heart failure; K21.9 Gastro-esophageal reflux disease without esophagitis; D63.8 Anemia in other chronic diseases classified elsewhere; Z99.2 Dependence on renal dialysis; Z87.891 Personal history of nicotine dependence; M10.9 Gout, unspecified; E78.5 Hyperlipidemia, unspecified; I25.10 Atherosclerotic heart disease of native coronary artery without angina pectoris; E11.42 Type 2 diabetes mellitus with diabetic polyneuropathy; E11.65 Type 2 diabetes mellitus with hyperglycemia; Z79.4 Long term (current) use of insulin; M31.5 Giant cell arteritis with polymyalgia rheumatica; E11.51 Type 2 diabetes mellitus with diabetic peripheral angiopathy without gangrene; Z66 Do not resuscitate; E87.5 Hyperkalemia; E87.70 Fluid overload, unspecified; K62.89 Other specified diseases of anus and rectum; R23.8 Other skin changes; E11.22 Type 2 diabetes mellitus with diabetic chronic kidney disease; M85.80 Other specified disorders of bone density and structure, unspecified site; S30.22XA Contusion of scrotum and testes, initial encounter; I95.9 Hypotension, unspecified; R60.0 Localized edema; E83.39 Other disorders of phosphorus metabolism; Z99.81 Dependence on supplemental oxygen; M54.16 Radiculopathy, lumbar region; Z89.421 Acquired absence of other right toe(s); G89.4 Chronic pain syndrome; I27.20 Pulmonary hypertension, unspecified; Z68.38 Body mass index [BMI] 38.0-38.9, adult
CPT/HCPCS: 36415; 36430; 37224; 37229; 70450; 71045; 71250; 72100; 72131; 72192; 73502; 74230; 75625; 75716; 75774; 80048; 80053; 80069; 82947; 83735; 83880; 84100; 84132; 84145; 85014; 85018; 85025; 85347; 85651; 86140; 86850; 86900; 86901; 86923; 87486; 87581; 87633; 87798; 92611; 93005; 93010; 93306; 93926; 93970; 94640; 94660; 94667; 94762; 96374; 96375; 96376; 97110; 97162; 97166; 97530; 97535; 99152; 99153; 99285-25; C1725; C1760; C1769; C1885; C1887; C1894; C2623; J0295; J0360; J0881; J1170; J1644; J1650; J2250; J2405; J2720; J2920; J2930; J3010; J7030; J7040; J7626; P9016; Q9967

== ENCOUNTER 2018-05-14 20:24 | Inpatient (IN) | payer MEDICARE, OTHER ==
[~2018-05-14] VITALS: Ht 172.7 cm; Wt 109.8 kg
[~2018-05-14 20:24] MED LIST changes: +ALBU3IS INH; +Amitiza24 MCG PO; +FISH OIL 500 M1 EAC3 PO; +GAVILAX17 GM PO; +GUAI600T33 PO; +HYDR25SUP PR; +MOVANTIK12.5 MG PO; +NEPHRO-VITE RX1 EACH PO; +NYST237S PO; +Pulmicort1 MG/2 ML INH
[2018-05-14 20:55] LABS: Calcium, Ionized (POC) 1.23 mmol/L (1.10-1.46); Chloride (POC) 90 mmol/L (98-108); Creatinine (POC) 3.7 mg/dL (0.8-1.3); Glucose (ISTAT POC) 236 mg/dL (70-99); Hemoglobin (POC) 8.5 g/dL (13.5-17.5); Potassium (POC) 3.9 mmol/L (3.5-5.5); Sodium (POC) 132 mmol/L (135-148); Total CO2 (POC) 30 mmol/L (21-32)
[2018-05-14 21:03] LABS: BASOPHILS ABSOLUTE AUTO 0.02 K/mm3 (0.00-0.23); BASOPHILS PERCENT AUTO 0 % (0-2); EOSINOPHILS ABSOLUTE AUTO 0.08 K/mm3 (0.00-0.68); EOSINOPHILS PERCENT AUTO 1 % (0-6); Hematocrit 27.3 % (37.0-53.0); Hemoglobin 8.6 g/dL (13.5-17.5); IMMATURE GRAN ABSOLUTE AUTO 0.45 K/mm3 (0.00-0.10); IMMATURE GRAN PERCENT AUTO 5 % (0-1); LYMPHOCYTES PERCENT AUTO 11 % (21-46); MONOCYTES PERCENT AUTO 4 % (4-13); Mean Corpuscular HGB 30.1 pg (26.0-34.0); Mean Corpuscular HGB Conc 31.5 g/dL (31.5-36.5); Mean Corpuscular Volume 96 fL (80-100); NEUTROPHILS ABSOLUTE AUTO 7.35 K/mm3 (1.96-9.15); NEUTROPHILS PERCENT AUTO 79 % (41-73); Platelet Count 175 K/mm3 (150-400); RDW Standard Deviation 52.7 fL (35.1-46.3); Red Blood Cell Count 2.86 M/mm3 (4.30-5.90)
[2018-05-14 21:26] LABS: Albumin, Blood 2.2 g/dL (3.4-5.0); Albumin/Globulin Ratio 0.5 (0.8-1.8); Bilirubin, Total 0.5 mg/dL (0.1-1.0); Bun/Creatinine Ratio 7.8 (12.0-20.0); Calcium, Blood 9.5 mg/dL (8.5-10.1); Creatinine, Blood 3.46 mg/dL (0.60-1.20); Globulin, Blood 4.1 g/dL (2.2-4.0); Total Protein, Blood 6.3 g/dL (6.4-8.2)
[2018-05-14 21:27] LABS: International Normalized Ratio 0.94
[2018-05-14] MEDS ORDERED: MIDO5 PO (21:37)
[2018-05-14] MEDS ORDERED: CLOTRIMAZOLE PO (22:11)
[2018-05-14] MEDS ORDERED: BISA10S PR (22:13)
[2018-05-14] MEDS ORDERED: Milk Of Ma400 MG/5 M PO (22:14)
[2018-05-14] MEDS ORDERED: INSULANPEN SC (22:15)
[2018-05-14] MEDS ORDERED: CHOL10002 PO (22:27)
[2018-05-14] MEDS ORDERED: BIOTIN5000 MC1 SL (22:30)
[2018-05-15 01:24] LABS: Hematocrit 28.1 % (37.0-53.0); Mean Corpuscular HGB 29.9 pg (26.0-34.0); Mean Corpuscular Volume 93 fL (80-100); NRBC ABSOLUTE 0.06 K/mm3 (0.00-0.02); NRBC Auto 0.4 /100 WBC (0.0-0.2); Platelet Count 198 K/mm3 (150-400); RDW Coefficient Variation 14.8 % (11.7-14.2); RDW Standard Deviation 50.2 fL (35.1-46.3); Red Blood Cell Count 3.01 M/mm3 (4.30-5.90); White Blood Cell Count 15.44 K/mm3 (4.00-11.30)
--- NOTE | 2018-05-15 01:50 | NUR ---
REPORT RECIEVED FROM PERI TRIPATHI IN ER
--- NOTE | 2018-05-15 02:40 | NUR ---
ARRIVAL TO ICU/DR. BECK COMMUNICATION PT ARRIVED TO ICU ON BIPAP, MINIMALLY RESPONSIVE. UNABLE TO OBTAIN AUTOMATIC OR MANUAL BLOOD PRESSURE. LEVOPHED INFUSING FROM EMERGENCY ROOM. TITRATED PER FLOWSHEET. HR ELEVATED, 110'S-130'S. O2 SATURATION STABLE. SEE ADMISSION ASSESSMENT. AT BEDSIDE AND PROVIDED WITH UPDATE. DR. BECK CONTACTED TO PROVIDE UPDATE ON PATIENT. NEW ORDER FOR VASOPRESSIN AND 2 UNITS PRBC TO BE ON STANDBY. KIRAN TO BEDSIDE FOR ASSESSMENT. DISCUSSED POSSIBLE ABG, NOT ORDERED AT THIS TIME. DURING MD ASSESSMENT, PERI HOFFMAN ABLE TO OBTAIN DOPPLER BLOOD PRESSURE. PER DR. BECK, TITRATE LEVOPHED DOWN PER DOPPLER BLOOD PRESSURES AND CONTINUE TO MONITOR. EXPRESSES CONCERN STATING, "I JUST WANT HIM TO BE COMFORTABLE." EDUCATED . EXPRESSED AWARENESS OF SERIOUSNESS OF CONDITION AND STATES, "I WANT TO GIVE MY KIDS A CHANCE TO COME IF THEY WANT TO. LET'S KEEP DOING EVERYTHING UNTIL THEY'VE HAD THAT CHANCE." CONFIRMS INTUBATION OK BUT NO CPR. LIMITED CODE STATUS ORDER IN PLACE. UPON ARRIVAL TO ICU, SHEETS SOAKED WITH SEROSANGUINEOUS FLUID. SHEETS CHANGED, PHOTOS TAKEN OF WOUNDS. SMALL AMOUNT OF BLOOD PRESENT ON BUTTOCK WOUND BUT NO APPARENT RECTAL BLEEDING AT THIS TIME.
[2018-05-15 03:03] LABS: BASOPHILS ABSOLUTE AUTO 0.05 K/mm3 (0.00-0.23); BASOPHILS PERCENT AUTO 0 % (0-2); EOSINOPHILS ABSOLUTE AUTO 0.06 K/mm3 (0.00-0.68); EOSINOPHILS PERCENT AUTO 0 % (0-6); Hematocrit 27.8 % (37.0-53.0); IMMATURE GRAN ABSOLUTE AUTO 1.13 K/mm3 (0.00-0.10); IMMATURE GRAN PERCENT AUTO 7 % (0-1); LYMPHOCYTES ABSOLUTE AUTO 2.34 K/mm3 (0.84-5.20); LYMPHOCYTES PERCENT AUTO 15 % (21-46); MONOCYTES ABSOLUTE AUTO 0.73 K/mm3 (0.16-1.47); MONOCYTES PERCENT AUTO 5 % (4-13); Mean Corpuscular HGB 30.4 pg (26.0-34.0); Mean Corpuscular HGB Conc 32.4 g/dL (31.5-36.5); Mean Corpuscular Volume 94 fL (80-100); Mean Platelet Volume 11.2 fL (9.1-12.4); NEUTROPHILS PERCENT AUTO 72 % (41-73); NRBC ABSOLUTE 0.09 K/mm3 (0.00-0.02); NRBC Auto 0.6 /100 WBC (0.0-0.2); Platelet Count 214 K/mm3 (150-400); RDW Coefficient Variation 14.9 % (11.7-14.2); RDW Standard Deviation 51.3 fL (35.1-46.3); Red Blood Cell Count 2.96 M/mm3 (4.30-5.90); White Blood Cell Count 15.41 K/mm3 (4.00-11.30)
[2018-05-15 03:20] LABS: BAND PERCENT MAN 3 % (0-8); BASOPHILS PERCENT MAN 0 % (0-2); EOSINOPHILS ABSOLUTE MAN 0.15 K/mm3 (0.00-0.68); EOSINOPHILS PERCENT MAN 1 % (0-6); LYMPHOCYTES ABSOLUTE MAN 1.69 K/mm3 (0.84-5.20); LYMPHOCYTES PERCENT MAN 11 % (21-46); MONOCYTES PERCENT MAN 2 % (4-13); NEUTROPHILS ABSOLUTE MAN 13.25 K/mm3 (1.96-9.15); SEG NEUTROPHILS PERCENT MAN 83 % (41-73); TOTAL CELLS COUNTED 100
--- NOTE | 2018-05-15 07:15 | NUR ---
BEDSIDE REPORT TO PERI SEE TO ASSUME CARE
--- NOTE | 2018-05-15 07:53 | NUR ---
BLOOD PRESSURE MONITORING SEE VITAL SIGNS COMMENTS FOR BLOOD PRESSURES. SYSTOLIC OVER DOPPLER READINGS ONLY OBTAINABLE MEASUREMENT SINCE ARRIVAL TO ICU.
--- NOTE | 2018-05-15 08:00 | NUR ---
INITIAL ASSESSMENT PATIENT RESTING QUIETLY IN BED ON BIPAP. PATIENT MINIMALLY RESPONSIVE TO PAIN. PATIENT WEAK BUT LOCALIZES MOVEMENT IN EXTREMITIES SLIGHTLY. PATIENT HAS NO SIGNS OF PAIN OR DISCOMFORT AT THIS TIME. PATIENT HAS TEMP OF 100.0 DEGREES FAHRENHEIT. BIPAP SETTINGS 12/8, 30% FIO2. RHONCHI NOTED IN [place], LLL DIMINISHED, R LOBES COARSE TO AUSCULTATION. PATIENT TACHYPNEIC- RR 30S TO 40S. NO COUGH NOTED. PATIENT IN ST WITH OCCASIONAL PACS. HR IN THE 130S. BP UNABLE TO BE OBTAINED WITH MONITOR. DOPPLER BEING USED TO OBTAIN SBP. LAST SBP 150. HEART RHYTHM STRIP MAY SHOW SOME ST ELEVATION AND DEPRESSION IN DIFFERENT LEADS. SCDS IN PLACE. ABDOMEN SEVERELY DISTENDED, FIRM, WITH NORMOACTIVE BS. NIGHT RN STATES THAT PATIENT HAD LARGE BLOODY BM WITH BLOOD CLOTS IN ER BUT HAS ONLY HAD RED SMEARS SINCE BEING ADMITTED TO ICU. PATIENT OLIGURIC IS DIALYSIS PATIENT. PULSES DOPPLERED IN BILAT FEET. R FOOT WARM AND L FOOT COOL TO TOUCH. OLD FISTULA TO LEFT ARM. FISTULA PATIENT CURRENTLY USES IS IN RIGHT ARM. PATIENT HAS SCATTERED BRUISES AND SCABS NOTED T/O BODY. PRESSURE ULCER NOTED TO BUTTOCKS. R 4TH TOE AMPUTATED. LEVOPHED INFUSING AT 2 MCG/ MINUTE. BED LOW, CALL LIGHT IN REACH. FAMILY AT BEDSIDE. WILL CONTINUE TO MONITOR PATIENT FREQUENTLY THROUGHOUT SHIFT.
--- NOTE | 2018-05-15 08:24 | NUR ---
SUMMARY SINCE ADMISSION, NEURO STATUS UNCHANGED. PT CONTINUES TO BE MINIMALLY RESPONSIVE. CONTINUE TO BE UNABLE TO OBTAIN AUTOMATIC OR MANUAL BLOOD PRESSURES. LEVOPHED TITRATED PER DOPPLER BLOOD PRESSURES. HR CONTINUES TO BE ELEVATED. O2 SATURATIONS STABLE ON BIPAP. PT CONTINUES TO HAVE SEROSANGUINEOUS FLUID LEAKING ONTO SHEETS FROM MERI/RECTAL AREA. ONE SMALL AMOUNT OF BLOOD WIPED FROM RECTUM DURING BED CHANGE. AT BEDSIDE SINCE ADMISSION. DR. DURAN IN TO SEE PT THIS MORNING. GI CONSULTED AND AWAITING ASSESSMENT.
--- NOTE | 2018-05-15 12:00 | NUR ---
PATIENT NOT RESPONSIVE. DRLilly AWARE. PATIENT SATTING 92% AND GREATER ON SAME BIPAP SETTINGS. RR 30S TO 40S. LUNGS COARSE T/O, DIMINISHED IN LOWER LOBES. PATIENT IN ST WITH OCCASIONAL PACS. HR 140S. SBP OF 102 WITH DOPPLER. PATIENT HAS NOT HAD ANY ACTIVE BLEEDING NOTICED AT THIS TIME. NO URINE OUTPUT THIS SHIFT. NO OTHER ACUTE CHANGES TO NOTE ON AT THIS TIME. WILL CONTINUE TO MONITOR.
--- NOTE | 2018-05-15 12:03 | NUR ---
DR. FLOWER IN ROOM VISITING WITH PATIENT'S . NOTIFIED OF PATIENT'S HR 130S TO 140S, RR 30S TO 40S, SBP WITH DOPPLER AT 100, AND THAT HE REMAINS MINIMALLY RESPONSIVE TO PAINFUL STIMULI. DR. BERRY STATED HE WILL BE IN TO SEE PATIENT SOON.
--- NOTE | 2018-05-15 12:17 | NUR ---
I met with Tonya, Mr. Hernandez's spouse at bedside. She admits to feeling pt may be nearing end of life. Apparently, they were told recently, "Dino, has less than six months to live." Tonya could not tells me exactly why Christiano is declining, other than to say, "There's a lot going wrong." She told me about his work history and stories of his love and dedication to family. This is a good man. Tonya became tearful during conversation. This couple has strong support of adult children. They are not "neccessarily mu-ism" but they have had experience with hospice and really liked the stakes player. Tonya asked that I contact that stakes player to see if he would come to hospital. I will relate request to Greyson over at hospice. In the meantime, Tonya allowed me to comfort, parliamentary counsel, and pray for Christiano. Clearly, Tonya and family will benefit from a clear, understandable explaination of Christiano's prognosis and why. Family will also benefit from continued emotional parliamentary counsel and support. I will remain available.
--- NOTE | 2018-05-15 12:58 | NUR ---
SPOKE TO DR. FLOWER AND DR. BERRY ON PATIENT STATUS. DR. BERRY STATED HE WILL BE IN TO SEE PATIENT IN ABOUT 10- 15 MINUTES. FAMILY WOULD LIKE TO HAVE MEETING WITH AT 1400.
--- NOTE | 2018-05-15 13:32 | NUR ---
DR. NEWELL CALLED AND INFORMED OF RESULTS OF RED TAG STUDY. NO ORDER OBTAINED AT THIS TIME.
--- NOTE | 2018-05-15 13:48 | NUR ---
DR. BERRY JUST CAME OUT OF PATIENT ROOM. NO ORDERS RECEIVED AT THIS TIME.
--- NOTE | 2018-05-15 14:04 | NUR ---
DR. NEWELL JUST FINISHED SPEAKING WITH PATIENT. NO ORDERS AT THIS TIME. FAMILY HAVING MEETING AND DISCUSSING POSSIBLE COMFORT CARE.
--- NOTE | 2018-05-15 14:45 | NUR ---
PATIENT'S HEART STOPPED AT 1440. DR. BERRY CONFIRMED. FAMILY AT BEDSIDE.
== END 2018-05-15 14:50 | DRG 377 ==
LOC: ER 20:24 → ERHOLD 20:25 → ICUW 20:25 → ERHOLD 20:25 → ICUW 05-15 01:34
PROVIDERS: Emergency Medicine; ADMIT Hospitalist
PROC: 5A09357 Assistance with Respiratory Ventilation, Less than 24 Consecutive Hours, Continuous Positive Airway Pressure (ICD-10-PCS; principal; 2018-05-15)
PROC: 30233N1 Transfusion of Nonautologous Red Blood Cells into Peripheral Vein, Percutaneous Approach (ICD-10-PCS; 2018-05-15)
PROC: 02HV33Z Insertion of Infusion Device into Superior Vena Cava, Percutaneous Approach (ICD-10-PCS; 2018-05-15)
DX: K92.1 Melena (principal); N18.6 End stage renal disease; J96.22 Acute and chronic respiratory failure with hypercapnia; J96.21 Acute and chronic respiratory failure with hypoxia; G93.41 Metabolic encephalopathy; D62 Acute posthemorrhagic anemia; I12.0 Hypertensive chronic kidney disease with stage 5 chronic kidney disease or end stage renal disease; E11.22 Type 2 diabetes mellitus with diabetic chronic kidney disease; Z99.2 Dependence on renal dialysis; Z79.4 Long term (current) use of insulin; E11.51 Type 2 diabetes mellitus with diabetic peripheral angiopathy without gangrene; G47.33 Obstructive sleep apnea (adult) (pediatric); M31.5 Giant cell arteritis with polymyalgia rheumatica; E66.01 Morbid (severe) obesity due to excess calories; E78.5 Hyperlipidemia, unspecified; Z87.891 Personal history of nicotine dependence; K59.00 Constipation, unspecified; D89.9 Disorder involving the immune mechanism, unspecified
CPT/HCPCS: 36430; 36556; 71045; 78278; 80047; 80053; 82947; 83605; 84484; 85014; 85025; 85027; 85610; 86850; 86900; 86901; 86923; 93005; 93010; 94640; 94660; 96361-59; 96374-59; 99285-25; A9560; C1751; G0378; J0881; J7030; J7040; J7060; J7626; P9016